=== PATIENT | female | born 1945 | race Caucasian/White ===

== ENCOUNTER 2018-06-21 11:25 | Day surgery (SDC) | payer OTHER ==
[2018-06-07 13:40] VITALS: BMI 23.2
--- NOTE | 2018-06-21 14:44 | OP ---
DATE OF PROCEDURE: 06/21/2018 [employer] SURGEON: None. PROCEDURES PERFORMED: 1. Esophagogastroduodenoscopy, diagnostic. 2. Colonoscopy with snare polypectomy. INDICATIONS: 1. Nausea. 2. Weight loss. 3. Average risk colon cancer screening exam, this is the patient's first colonoscopy. MEDICATIONS: See Anesthesia record. FINDINGS: After discussion of the risks, benefits, and alternatives of the procedure, informed consent was obtained and witnessed. Pre-endoscopic cardiopulmonary examination was satisfactory. Time-out was performed before sedation was achieved. Sedation was achieved with Anesthesia assistance in the endoscopy unit. A Pentax adult upper endoscope was placed into the oropharynx and passed through the cricopharyngeus under direct visualization. The esophageal mucosa appeared normal throughout with a normal-appearing Z-line. The endoscope was advanced into the stomach. Forward and retroflexed views of the entire gastric mucosa were obtained. The gastric mucosa appears normal. The endoscope was advanced through the pylorus and into the first and second portions of the duodenum, which also appeared normal. The upper endoscope was completely withdrawn, and the patient was repositioned. Digital rectal exam was performed, which was unremarkable. The Pentax adult colonoscope was inserted into the anus and passed forward to the cecum in the usual fashion. The cecal base was identified by the appendiceal orifice as well as the ileocecal valve. The terminal ileum was intubated and the ileal mucosa appeared normal. The colonoscope was then slowly withdrawn in a gradual and circumferential manner with careful examination of the entire colonic mucosa. The quality of the prep was good. In the descending colon, there were 2 sessile polyps measuring 7 to 8 mm in diameter. These were completely removed with hot snare and retrieved for pathology. In the sigmoid colon, there were 2 polyps measuring 8 to 10 mm in diameter, one of these was sessile and the other was pedunculated. Both these polyps were completely removed with hot snare and retrieved for pathology. Retroflexion in the rectum demonstrated internal hemorrhoids. The colonoscope was then completely withdrawn, and the patient allowed to recover. The patient tolerated the procedure well. There were no immediate postprocedure complications. IMPRESSION: 1. Normal esophagogastroduodenoscopy. 2. Two descending colon polyps measuring 7 to 8 mm, completely removed with hot snare and retrieved for pathology. 3. Two sigmoid colon polyps measuring 8 to 10 mm in diameter, completely removed with hot snare and retrieved for pathology. 4. Internal hemorrhoids. RECOMMENDATIONS: 1. Follow up pathology on the colon polyps. 2. Repeat colonoscopy for surveillance in 3 years. 3. Follow up in GI clinic in about 1 month. Job ID: [id number]
[2018-06-21] MEDS ORDERED: PROPOFOL 200 MG/20 ML VIAL ONE (17:15)
[2018-06-21] MEDS ORDERED: Lidocaine 1% PF 5 ML VIAL ONE (17:15)
== END 2018-06-21 15:27 ==
LOC: SDC 11:25
PROVIDERS: ATTEND Internal Medicine
PROC: 0DBN8ZX Excision of Sigmoid Colon, Via Natural or Artificial Opening Endoscopic, Diagnostic (ICD-10-PCS; principal; 2018-06-21)
PROC: 0DBM8ZX Excision of Descending Colon, Via Natural or Artificial Opening Endoscopic, Diagnostic (ICD-10-PCS; principal; 2018-06-21)
PROC: 0DJ08ZZ Inspection of Upper Intestinal Tract, Via Natural or Artificial Opening Endoscopic (ICD-10-PCS; principal; 2018-06-21)
DX: Z12.11 Encounter for screening for malignant neoplasm of colon (principal); D12.4 Benign neoplasm of descending colon; D12.5 Benign neoplasm of sigmoid colon; K64.8 Other hemorrhoids; R11.0 Nausea; R63.4 Abnormal weight loss; Z68.23 Body mass index [BMI] 23.0-23.9, adult; Z79.811 Long term (current) use of aromatase inhibitors; Z79.899 Other long term (current) drug therapy
CPT/HCPCS: 88305; J2001; J2704

== ENCOUNTER 2019-10-20 14:58 | Observation (INO) | payer OTHER ==
[~2019-10-20 14:58] MED LIST: Iopamidol 370 76% 100 ML VIAL ONE
--- NOTE | 2019-10-20 15:47 | CT ---
CT BRAIN WITHOUT CONTRAST: HISTORY:Lethargy, weakness, altered mental status COMPARISON:10/11/2019 FINDINGS: There are foci of decreased attenuation in the periventricular white matter, consistent with chronic small vessel ischemic disease. Changes of cortical atrophy are again seen. No evidence of acute infarct, hemorrhage, midline shift or abnormal extra-axial fluid collections is seen. The ventricular size is stable and the basilar cisterns are patent. The bony calvarium is intact. The visualized paranasal sinuses and mastoid air cells are well aerated. IMPRESSION: No CT evidence of acute intracranial process.
--- NOTE | 2019-10-20 16:33 | RAD ---
Chest one view HISTORY: Lethargy. Dyspnea. COMPARISON: 10/11/2019. FINDINGS: Cardiac silhouette is magnified by projection. Pulmonary vasculature is unremarkable. Mediastinum is midline with aortic calcification. No lobar consolidation or evidence of pneumothorax. Metallic clips overlie the right axilla. phototypesetting equipment monitor leads overlie the chest. IMPRESSION : Atherosclerosis. No active cardiopulmonary abnormalities are otherwise demonstrated
[2019-10-20 16:43] LABS: #Basophils 0.1 thou/uL (0.0-0.2); #Eosinphils 0.2 thou/uL (0.0-0.7); #Monocytes 0.7 thou/uL (0.11-0.59); #Neutrophils 5.6 thou/uL (1.40-6.50); %Basophils 0.7 % (0.0-1.0); %Eosinophils 2.4 % (0.0-10.0); %Lymphocytes 31.3 % (21.0-51.0); %Neutrophils 58.6 % (42.0-75.0); Hemoglobin 10.3 g/dL (12.0-16.0); Mean Corpuscular HGB CONC 33.5 g/dL (32.0-36.0); Mean Corpuscular Hemoglobin 32.2 pg (27.0-31.0); Platelet Count 309 thou/uL (130-400); RBC Distribution Width 11.7 % (11.5-14.5); White Blood Cell (WBC) Count 9.6 thou/uL (4.8-10.8)
[2019-10-20 17:05] LABS: ALT (SGPT) 21 U/L (8-55); AST (SGOT) 26 U/L (5-34); Albumin 2.5 g/dL (3.4-4.8); Alkaline Phosphatase 84 U/L (40-110); Anion Gap 12 mmol/L (10-20); BUN (Urea Nitrogen) 19 mg/dL (9.8-20.1); Bilirubin, Total 0.5 mg/dL (0.2-1.2); Calc. Creatinine Clearance 0 mL/min (70-130); Calcium 9.1 mg/dL (7.8-10.44); Carbon Dioxide 24 mmol/L (23-31); Chloride 104 mmol/L (98-107); Estimated GFR-MDRD 51; Glucose 79 mg/dL (83-110); Potassium 4.4 mmol/L (3.5-5.1); Protein, Total 6.5 g/dL (6.0-8.3); Sodium 136 mmol/L (136-145)
[2019-10-20 17:25] LABS: Bacteria/HPF None Seen HPF (None Seen); Bilirubin Negative (Negative); Blood, Urine Trace (Negative); Clarity Clear (Clear); Glucose, Urine (Dipstick) Normal (Negative); Ketone, Urine Negative (Negative); Leukocyte Negative Leu/uL (Negative); Nitrite Negative (Negative); Protein, Urine (Dipstick) 20 mg/dL (Neg-Trace); Specific Gravity, Urine 1.012 (1.002-1.036); Squamous Epithelial 0-3 HPF (0-3); Urobilinogen Normal mg/dL (Less than 2); WBC/HPF 0-3 HPF (0-3); pH, Urine 7.5 (5.0-9.0)
--- NOTE | 2019-10-20 18:58 | CT ---
CT OF THE ABDOMEN AND PELVIS WITH IV CONTRAST INDICATION: History of weakness and abdominal pain COMPARISON: CT the abdomen and pelvis dated June 09, 2007 FINDINGS: ABDOMEN: Lung bases: There is bibasilar atelectasis Liver: No focal lesion. Gallbladder: Mildly distended Pancreas: Normal. Adrenal glands: Normal. Spleen: Normal. Kidneys and ureters: There is bilateral renal cysts. The largest within the inferior pole left kidney measuring 4.4 cm. The largest within the right kidney measures 2.3 cm within the right mid kidney. Vasculature: There are moderate vascular calcifications seen involving the visualized vasculature. Lymph nodes:No lymphadenopathy. Free fluid in abdomen:No free fluid is evident. PELVIS: Small and large bowel: There is a moderate amount retained stool within colon. Small bowel is of norm al caliber. Appendix:Normal Bladder: Normal. Rectal and perirectal soft tissues:Normal. Reproductive structures: Normal. Free fluid in pelvis: No free fluid is evident. Lymphadenopathy pelvis: No lymphadenopathy is evident. Osseous structures: No acute osseous abnormality. No destructive osteolytic or osteoblastic lesion i s identified. There is scattered degenerative and osteoarthritic changes. Soft tissues:Mild anasarca IMPRESSION: 1. Nonspecific mild distention of the gallbladder. 2. Bilateral renal cysts. 3. Moderate amount of retained stool within the colon. 4. Mild anasarca
[2019-10-20] MEDS ORDERED: hydrALAZINE 20 MG/ML VIAL SLOW IVP PRN (21:18)
[2019-10-20] MEDS: Dextrose 5 % And 0.9 % NaCl 1,000 ML IV SCH (22:30)
--- NOTE | 2019-10-21 02:15 | HP ---
REASON FOR ADMISSION: Worsening confusion. HISTORY OF PRESENT ILLNESS: This is a 74-year-old female patient, who is a longterm resident and is known to have history of dementia. She was recently at [facility] for confusion, is thought to be secondary to acute metabolic encephalopathy and acute on chronic renal insufficiency. She was hospitalized for approximately 5 days. She improved and then she was discharged to the longterm. Her daughter noticed that the patient has not been eating and not very responsive. She does not know the color of the blanket for example and there was a concern for aspiration, so she asked her mom to be sent to the ER. The patient is currently on Med/Surg, appears to be comfortable. She does follow commands, but she appears to be disoriented. PAST MEDICAL HISTORY: 1. Hypothyroidism. 2. High blood pressure. 3. Anxiety. 4. Depression. 5. Schizophrenia. 6. Status post mastectomy. 7. Chronic kidney disease. 8. Dementia. ALLERGIES: NO NOTE OF ANY DRUG ALLERGIES. PAST SURGICAL HISTORY: Right mastectomy and bilateral tubal ligation. SOCIAL HISTORY: She does not smoke. Does not drink alcohol. REVIEW OF SYSTEMS: Unable to obtain due to her dementia. PHYSICAL EXAMINATION: GENERAL: She is awake, but confused. VITAL SIGNS: Her blood pressure is 153/76, heart rate of 101, and saturating 100% on room air. HEENT: Head is nontraumatic and normocephalic. Pupils appear equally reactive. Extraocular movements are intact. Nonicteric sclerae. Well injected conjunctivae. Oral mucosa normal. Nasal mucosa normal. NECK: Supple. No adenopathy. No murmur. Thyroid is not palpable. Trachea is midline. No supraclavicular adenopathy. HEART: S1 and S2, regular. No murmur. No gallops. No friction rubs. No displacement of PMI. LUNGS: Poor inspiratory effort. ABDOMEN: Bowel sounds are positive. Nontender abdomen. No hepatosplenomegaly. EXTREMITIES: 1+ pitting edema in bilateral lower extremities. NEURO: Unable to fully assess. Cranial nerves appeared to be intact. She is moving all four extremities. LABORATORY DATA: Blood work shows WBC of 9.6, hemoglobin of 10.3, and platelets of 309. D-dimer 2.08. Sodium 136, potassium of 4.4, BUN 19, and creatinine 1.05. BNP 135. Urinalysis does not show any evidence of infection. IMAGING DATA: CT of the head shows no acute process. CT of the abdomen shows nonspecific mild distention of the gallbladder, bilateral renal cyst, moderate amount of retained stool within the colon, mild anasarca. Chest x-ray shows no active cardiopulmonary disease. ASSESSMENT AND PLAN: This is a 74-year-old female patient, who is presenting with worsening of her confusion, possible aspiration, decreased oral intake. Neuro: The patient has dementia. Her confusion is most likely metabolic in nature and multifactorial. We will ask Neurology to assess her for further input. GI: The patient has poor oral intake. We will ask our Speech and Swallow to evaluate her and we will look into the process of PEG tube placement since daughter is interested in that option. For DVT prophylaxis, she will be on Lovenox subcu. I did discuss the code status with her daughter. She wishes her to be a DNR. The patient will be on gentle IV fluid hydration. Job ID: [id number]
[2019-10-21 05:39] LABS: #Eosinphils 0.4 thou/uL (0.0-0.7); #Lymphocytes 2.4 thou/uL (1.20-3.40); #Monocytes 0.5 thou/uL (0.11-0.59); #Neutrophils 4.7 thou/uL (1.40-6.50); %Basophils 0.5 % (0.0-1.0); %Eosinophils 4.6 % (0.0-10.0); %Lymphocytes 30.1 % (21.0-51.0); %Monocytes 6.6 % (0.0-10.0); %Neutrophils 58.3 % (42.0-75.0); Hemoglobin 8.8 g/dL (12.0-16.0); Mean Corpuscular HGB CONC 31.4 g/dL (32.0-36.0); Mean Corpuscular Hemoglobin 30.8 pg (27.0-31.0); Mean Platelet Volume 7.9 fL (7.4-10.4); Platelet Count 276 thou/uL (130-400); RBC Distribution Width 11.8 % (11.5-14.5); Red Blood Cell (RBC) Count 2.86 mill/uL (4.20-5.40); White Blood Cell (WBC) Count 8.1 thou/uL (4.8-10.8)
[2019-10-21 06:00] LABS: Anion Gap 10 mmol/L (10-20); BUN (Urea Nitrogen) 15 mg/dL (9.8-20.1); Calc. Creatinine Clearance 63 mL/min (70-130); Calcium 8.3 mg/dL (7.8-10.44); Carbon Dioxide 22 mmol/L (23-31); Chloride 106 mmol/L (98-107); Estimated GFR-MDRD 61; Glucose 94 mg/dL (83-110); Potassium 4.3 mmol/L (3.5-5.1); Sodium 134 mmol/L (136-145)
[2019-10-21] MEDS ORDERED: Polyethylene Glycol 3350 17 GM Packet PO PRN (07:11)
[2019-10-21] MEDS ORDERED: Acetaminophen/Codeine 30-300mg Tablet PO PRN ×2 (07:11→07:18)
[2019-10-21] MEDS ORDERED: Meclizine HCl 25 MG TAB PO PRN (07:11)
[2019-10-21] MEDS ORDERED: Valproate Sodium 250 mg/5 ml UD Cup PO SCH (09:00)
[2019-10-21] MEDS ORDERED: Non-Formulary Item 1 EACH (Esomeprazole Magnesium [Nexium 24hr] 20 MG) PO SCH (09:00)
[2019-10-21] MEDS ORDERED: Enoxaparin Sodium 40 MG/0.4 ML SYRINGE SC SCH (09:00)
[2019-10-21] MEDS: Anastrozole 1 MG TAB PO SCH (10:47)
[2019-10-21] MEDS: Levothyroxine Sodium 25 MCG TAB PO SCH (10:48)
[2019-10-21] MEDS: Lactinex Tablet PO SCH ×2 (10:48→20:49)
[2019-10-21] MEDS: Ferrous Sulfate 325 MG TAB PO SCH ×2 (10:48→20:50)
[2019-10-21] MEDS: Docusate 100 MG CAP PO SCH ×2 (10:48→20:49)
[2019-10-21] MEDS: Valproate Sodium 250 mg/5 ml UD Cup PO SCH ×2 (10:49→20:50)
[2019-10-21] MEDS: Sucralfate 1 GM TAB PO SCH ×2 (10:49→20:49)
--- NOTE | 2019-10-21 12:05 | CON ---
NEUROLOGY CONSULTATION DATE OF CONSULTATION: 10/21/2019 REASON FOR CONSULTATION: Altered mental status. HISTORY OF PRESENT ILLNESS: Ms. Paz is a 74-year-old female, who is a shelter resident with dementia, hypothyroidism, hypertension, depression, schizophrenia, chronic kidney disease, and presented to the [facility] with altered mental status. Initially it was thought to be due to acute metabolic encephalopathy and she was hospitalized for 5 days and was discharged to the shelter. Per daughter, she became more unresponsive and not eating and there was a concern of aspiration, so she was brought back to the emergency room for further evaluation. Neurology was consulted for further input. REVIEW OF SYSTEMS: Unobtainable due to patient's mental status. ALLERGIES: NO KNOWN DRUG ALLERGIES. PAST MEDICAL HISTORY: Hypertension, hypothyroidism, dementia, anxiety, depression, chronic kidney disease. PAST SURGICAL HISTORY: Status post mastectomy. SOCIAL HISTORY: The patient is a shelter resident. No history of smoking, alcohol, illegal drug use. FAMILY HISTORY: No significant family history. PHYSICAL EXAMINATION: VITAL SIGNS: Blood pressure 150/70, pulse 80, respiratory rate 18. GENERAL: The patient is awake, but extremely confused. She keeps on repeating "please help me." HEENT: Normocephalic and atraumatic. CVS: Regular rate and rhythm. CHEST: Clear. ABDOMEN: Soft. NEUROLOGIC: Mental status: The patient is alert, awake, but not oriented to person, place, and time. She is extremely confused and does not follow commands appropriately. She does not track. Cranial nerves: Pupils round and reactive to light. Face symmetric. Tongue midline. Moves neck in both direction. Hearing seems to be intact. Masked faces. Motor: Muscle tone is increased. She has cogwheel rigidity in bilateral upper and lower extremity. Bilateral upper extremities tremor, right greater than left. Reflexes symmetric bilaterally. Cerebellar: Unable to perform secondary to mental status. Gait deferred due to the patient's safety reasons. DATA REVIEWED: I reviewed the CT scan of the head, which did not reveal any acute intracranial pathology. Chest x-ray is also unremarkable. ASSESSMENT AND PLAN: Ms. Angelica Paz is a 74-year-old with a history of baseline dementia, confusion, chronic kidney disease, consulted by Neurology for altered mental status and hallucinations. EEG reviewed and was negative for seizure activity. Consider MRI of the brain to rule out acute intracranial process. Altered mental status seems to be multifactorial secondary to chronic kidney disease versus parkinsonism like features. We will get MRI of the brain first before and then outpatient followup by Neurology to evaluate her further for Parkinson disease and a trial of Sinemet. Will hold Sinemet trail at this time because of hallucinations. Continue medical management per primary team, PT/OT/Speech. Continue home medications. DVT prophylaxis. We will continue to follow. Thank you for the consult. Plan discussed with the primary team in detail. Job ID: [id number] MILLIE
[2019-10-21 13:13] VITALS: BMI 25.8
--- NOTE | 2019-10-21 13:14 | PDOC.HOSPP ---
- Subjective Encounter Date: 10/21/19 Encounter Time: 13:05 Subjective: f/u for AMS/encephalopathy of unclear source. Recent UTI with admit tx with abx. Hx of dementia/Schizophrenia/Depression. - Objective Vital Signs & Weight: Vital Signs (12 hours) Temp Pulse Resp BP Pulse Ox 10/21/19 11:52 98.2 F 83 20 126/75 100 10/21/19 08:13 98.4 F 87 20 118/69 99 10/21/19 08:11 98.0 F 81 18 182/75 H 95 10/21/19 04:25 97.4 F L 82 18 128/78 96 Weight Weight 160 lb I&O: 10/20/19 10/21/19 10/22/19 06:59 06:59 06:59 Intake Total 675 Balance 675 Result Diagrams: 10/21/19 05:13 10/21/19 05:13 Additional Labs: Microbiology 10/20/19 16:57 Urine Straight Catheter Urine Culture - Preliminary NO GROWTH AT 24 HOURS 10/20/19 16:47 Venous blood - Right Hand Blood Culture - Preliminary Specimen has been received and culture in progress. No Growth to date. 10/20/19 16:20 Venous blood - Left Arm Blood Culture - Preliminary Specimen has been received and culture in progress. No Growth to date. Laboratory Tests 10/20/19 10/20/19 10/20/19 16:20 16:20 16:20 Hgb 10.3 L MCV 96.0 Sodium 136 B-Natriuretic Peptide 135.7 H Radiology Reviewed by me: Yes (EEG - non-specific cerebral dysfxn) Hospitalist ROS - Medication Medications: Active Medications Generic Name Dose Route Start Last Admin Trade Name Freq PRN Reason Stop Dose Admin Acidophilus 1 tab 10/21/19 09:00 10/21/19 10:48 Floranex PO Not Given BID [facility] Anastrozole 1 mg 10/21/19 09:00 10/21/19 10:47 Arimidex PO Not Given DAILY [facility] Docusate Sodium 100 mg 10/21/19 09:00 10/21/19 10:48 Colace PO Not Given BID [facility] Ferrous Sulfate 325 mg 10/21/19 09:00 10/21/19 10:48 Feosol PO Not Given BID [facility] Dextrose/Sodium Chloride 1,000 mls @ 75 mls/hr 10/20/19 21:30 10/20/19 22:30 D5 0.9% Ns IV 1,000 mls .[id number] JOSE ROBERTO Administration Levothyroxine Sodium 25 mcg 10/21/19 09:00 10/21/19 10:48 Synthroid PO Not Given DAILY JOSE ROBERTO Pantoprazole Sodium 40 mg 10/21/19 09:00 10/21/19 10:49 Protonix PO Not Given DAILY JOSE ROBERTO Sodium Chloride 10 ml 10/21/19 09:00 10/21/19 10:49 Flush - Normal Saline IVF Not Given Q12HR JOSE ROBERTO Sucralfate 1 gm 10/21/19 09:00 10/21/19 10:49 Carafate PO Not Given BID JOSE ROBERTO Valproic Acid 500 mg 10/21/19 09:00 10/21/19 10:49 Depakene Liquid PO Not Given BID JOSE ROBERTO - Exam General Appearance: NAD, awake alert Eye: PERRL, anicteric sclera ENT - other findings: edentulous Neck: supple, symmetric, no JVD, no thyromegaly, no lymphadenopathy Heart: RRR, no gallops, no rubs, normal peripheral pulses Heart - other findings: S1, S2 Respiratory: CTAB, no wheezes, no rales, no ronchi, normal chest expansion Gastrointestinal: soft, non-tender, non-distended, normal bowel sounds, no palpable masses Extremities: no cyanosis, no clubbing, no edema Skin: normal turgor, no lesions Neurological: cranial nerve grossly intact, no new deficit Neurological - other findings: not observed ambulatory, cog-wheel rigidity, resting pill tremors Musculoskeletal: generalized weakness Psychiatric: oriented to person, flat affect Hosp A/P (1) Acute metabolic encephalopathy Code(s): G93.41 - METABOLIC ENCEPHALOPATHY Status: Acute Plan: ? encephalopathy or worsening of baseline dementia, no seizure activity per EEG , supportive mgmt (2) Parkinson disease Code(s): G20 - PARKINSON'S DISEASE Status: Chronic Plan: Appears untreated, start Sinemet 25/100mg po TID, PT evaluation for functional assessment (3) Acute on chronic kidney failure Code(s): N17.9 - ACUTE KIDNEY FAILURE, UNSPECIFIED; N18.9 - CHRONIC KIDNEY DISEASE, UNSPECIFIED Status: Acute Qualifiers: Chronic kidney disease stage: stage 3 (moderate) Plan: Improved with IVF's, avoid nephrotoxic meds and limit contrast exposure (4) Schizo affective schizophrenia Code(s): F25.9 - SCHIZOAFFECTIVE DISORDER, UNSPECIFIED Status: Chronic (5) Dementia Code(s): F03.90 - UNSPECIFIED DEMENTIA WITHOUT BEHAVIORAL DISTURBANCE Status: Chronic Plan: Likely Alzheimer's type, supportive mgmt (6) Normocytic anemia Code(s): D64.9 - ANEMIA, UNSPECIFIED Status: Acute Plan: ? etiology, check stool guaiac, Iron/Ferritin/Retic count, serial H/H - Plan PT/OT, social worker palliative care, speech therapy, out of bed/ambulate, DVT proph w/SCDs Stable overall Continue supportive mgmt Start Sinemet 25/100mg po TID Continue low-volume IVF's OOB with PT AM lab: BMP, H/H, Ferritin/Iron/Retic count
[2019-10-21] MEDS: Dextrose 5 % And 0.9 % NaCl 1,000 ML IV SCH (13:38)
--- NOTE | 2019-10-21 13:42 | EEG ---
DATE OF SERVICE: 10/21/2019 ATTENDING PHYSICIAN: Eileen Dominguez MD This EEG was performed using 24-channel [employer] video digital EEG machine with 24 disk electrodes. This was an extended 2 hours 5 minutes of inpatient video EEG recording. Digital analysis of the EEG was done for spike and seizure detection, which revealed no abnormalities. BACKGROUND: The posterior background rhythm was not observed. HYPERVENTILATION: Not performed. PHOTIC STIMULATION: No response seen with photic stimulation. SLEEP: No stage changes observed. EEG DIAGNOSES: 1. Generalized irregular theta-delta activity seen throughout the recording. 2. Absence of posterior background rhythm. CLINICAL INTERPRETATION: This EEG is consistent with moderate generalized nonspecific cerebral dysfunction. No ictal or interictal epileptiform abnormalities seen during the recording. Job ID: [id number]
[2019-10-21] MEDS: Carbidopa/Levodopa 25-100 mg Tablet PO SCH (20:49)
[2019-10-21] MEDS ORDERED: Prevnar 13-Val Conj/PF 0.5 ML SYRINGE IM ONE (21:00)
[2019-10-21] MEDS ORDERED: Benzonatate 100 MG CAP PO PRN (22:05)
[2019-10-22] MEDS: Dextrose 5 % And 0.9 % NaCl 1,000 ML IV SCH ×2 (01:21→15:17)
[2019-10-22 07:20] LABS: Reticulocyte Count 3.6 % (0.5-1.5)
[2019-10-22 07:21] LABS: Hemoglobin 9.4 g/dL (12.0-16.0); Platelet Count 273 thou/uL (130-400)
--- NOTE | 2019-10-22 09:10 | RAD ---
CHEST 1 VIEW: Date: 10/22/2019 HISTORY: Choking episode, concern for aspiration. FINDINGS: Moderate rotation to the left. Surgical clips overlying the right chest wall. No direct or indirect e vidence of malignancy. IMPRESSION: Stable chest. No evidence for pneumonia or aspiration. Unchanged from prior study. POS: RRE
[2019-10-22] MEDS: Lactinex Tablet PO SCH ×2 (09:20→20:50)
[2019-10-22] MEDS: Levothyroxine Sodium 25 MCG TAB PO SCH (09:20)
[2019-10-22] MEDS: Sucralfate 1 GM TAB PO SCH ×2 (09:21→20:50)
[2019-10-22] MEDS: Docusate 100 MG CAP PO SCH ×2 (09:21→20:50)
[2019-10-22] MEDS: Valproate Sodium 250 mg/5 ml UD Cup PO SCH ×2 (09:21→20:49)
[2019-10-22] MEDS: Ferrous Sulfate 325 MG TAB PO SCH (09:21)
--- NOTE | 2019-10-22 13:33 | PDOC.HOSPP ---
- Subjective Encounter Date: 10/22/19 Encounter Time: 12:15 Subjective: ortiz cute events noted o/n. she is sitting in the bed, on the screaming side, not answering any qs except screaming. - Objective Vital Signs & Weight: Vital Signs (12 hours) Temp Pulse Resp BP Pulse Ox 10/22/19 11:54 98.0 F 75 20 105/53 L 99 10/22/19 08:00 98.6 F 73 20 138/83 100 10/22/19 04:00 97.8 F 73 18 146/76 H 93 L Weight Admit Weight 160 lb Weight 160 lb I&O: 10/21/19 10/22/19 10/23/19 06:59 06:59 06:59 Intake Total 675 690 Output Total 800 Balance 675 -110 Result Diagrams: 10/22/19 06:44 10/21/19 05:13 Hospitalist ROS - Medication Medications: Active Medications Generic Name Dose Route Start Last Admin Trade Name Freq PRN Reason Stop Dose Admin Acidophilus 1 tab 10/21/19 09:00 10/22/19 09:20 Floranex PO 1 tab BID JOSE ROBERTO Administration Anastrozole 1 mg 10/21/19 09:00 10/21/19 10:47 Arimidex PO Not Given DAILY JOSE ROBERTO Carbidopa/Levodopa 1 tab 10/21/19 21:00 10/21/19 20:49 Sinemet 25-100 PO 1 tab TID JOSE ROBERTO Administration Docusate Sodium 100 mg 10/21/19 09:00 10/22/19 09:21 Colace PO 100 mg BID JOSE ROBERTO Administration Ferrous Sulfate 325 mg 10/21/19 09:00 10/22/19 09:21 Feosol PO 325 mg BID JOSE ROBERTO Administration Dextrose/Sodium Chloride 1,000 mls @ 75 mls/hr 10/20/19 21:30 10/22/19 01:21 D5 0.9% Ns IV Not Given .[id number] JOSE ROBERTO Levothyroxine Sodium 25 mcg 10/21/19 09:00 10/22/19 09:20 Synthroid PO 25 mcg DAILY JOSE ROBERTO Administration Pantoprazole Sodium 40 mg 10/21/19 09:00 10/22/19 09:20 Protonix PO 40 mg DAILY JOSE ROBERTO Administration Sodium Chloride 10 ml 10/21/19 09:00 10/22/19 09:21 Flush - Normal Saline IVF 10 ml Q12HR JOSE ROBERTO Administration Sucralfate 1 gm 10/21/19 09:00 10/22/19 09:21 Carafate PO 1 gm BID JOSE ROBERTO Administration Valproic Acid 500 mg 10/21/19 09:00 10/22/19 09:21 Depakene Liquid PO 500 mg BID JOSE ROBERTO Administration - Exam General Appearance: ill appearing Eye: PERRL ENT: normocephalic atraumatic Neck: supple Heart: RRR Respiratory: CTAB, normal chest expansion Gastrointestinal: soft Neurological: no focal deficits Psychiatric: not oriented Hosp A/P - Plan (1) Acute metabolic encephalopathy Code(s): G93.41 - METABOLIC ENCEPHALOPATHY Status: Acute Plan: ? encephalopathy or worsening of baseline dementia, no seizure activity per EEG , supportive mgmt (2) Parkinson disease Code(s): G20 - PARKINSON'S DISEASE Status: Chronic Plan: Appears untreated, start Sinemet 25/100mg po TID, PT evaluation for functional assessment Started Sinemet 25/100mg po TID -MRI is not ordered for the last 2 days -it does not appear pt would be stable to get that done. - will order and ativan prn, will make an attempt this weekend. -get tsh, vit D, b12 and folate -neuro nte reviewed -EEG - no abnormality (3) Acute on chronic kidney failure Code(s): N17.9 - ACUTE KIDNEY FAILURE, UNSPECIFIED; N18.9 - CHRONIC KIDNEY DISEASE, UNSPECIFIED Status: Acute Qualifiers: Chronic kidney disease stage: stage 3 (moderate) Plan: Improved with IVF's, avoid nephrotoxic meds and limit contrast exposure (4) Schizo affective schizophrenia Code(s): F25.9 - SCHIZOAFFECTIVE DISORDER, UNSPECIFIED Status: Chronic -restart zyprexa - home med (5) Dementia Code(s): F03.90 - UNSPECIFIED DEMENTIA WITHOUT BEHAVIORAL DISTURBANCE Status: Chronic Plan: Likely Alzheimer's type, supportive mgmt (6) Normocytic anemia Code(s): D64.9 - ANEMIA, UNSPECIFIED Status: Acute Plan: ? etiology, check stool guaiac, Iron/Ferritin/Retic count, serial H/H OOB with PT pt from [place] - will see how she does in the next few days - follow imaging study and labs.
[2019-10-22] MEDS: Carbidopa/Levodopa 25-100 mg Tablet PO SCH ×3 (13:59→20:50)
[2019-10-22] MEDS: Anastrozole 1 MG TAB PO SCH (13:59)
[2019-10-22] MEDS ORDERED: Lorazepam 2 MG/ML VIAL SLOW IVP PRN (14:18)
[2019-10-22] MEDS ORDERED: Magnevist 469MG/ML 20 ML VIAL ONE (15:04)
[2019-10-22 15:14] LABS: Thyroid Stimulating Hormone 2.3239 uIU/mL (0.35-4.94); Vitamin D, 25 Hydroxy 21.2 ng/ml (> 30.0)
--- NOTE | 2019-10-22 16:51 | MRI ---
MRI BRAIN WITH AND WITHOUT CONTRAST: DATE: 10/22/19 HISTORY: 74-year-old female with central nervous system abnormality, concern for Parkinson's. COMPARISON: No prior brain MRIs. TECHNIQUE: Multiple sequences obtained in axial, sagittal, and coronal planes; pre and post IV injection of gado linium-based contrast agent: Multihance. FINDINGS: All images are degraded by patient motion, some worse than others. The FLAIR axial images and T2 weig hted images are especially degraded by motion, even the repeated FLAIR sequence. The lateral, third, and fourth ventricles are diffusely moderately dilated. There is diffuse cortical atrophy of the bilateral cerebral hemispheres, and atrophy of the brainstem There is no restricted diffusion to indicate an acute infarction. There is confluent hyperintense sig nal abnormality throughout the periventricular white matter, extending to the bah radiata and cent rum semiovale bilaterally. At least some of this represents high grade chronic ischemic white matter changes due to microvascular atherosclerosis. Superimposed transependymal migration of CSF is not exc luded. There is no dural venous sinus thrombosis. No mass effect, midline shift, or extra-axial fluid collec tions. No abnormal intra-axial enhancement or mass. No extra-axial fluid collection. The degree of ve ntriculomegaly has not changed compared to brain CT of 10/20/19 and 10/11/19. Please note that MRI canno t diagnose Parkinson's disease. IMPRESSION: 1. Diffuse brain atrophy and moderately severe chronic ischemic white matter changes. 2. Ventriculomegaly. This is probably due to the brain atrophy. There is a smaller possibility t hat there could be a superimposed normal pressure hydrocephalus. Recommend clinical correlation (is t here urinary incontinence, and/or gait apraxia, in addition to the altered mental status?). VELVET Randhawa POS: ANSON
[2019-10-23] MEDS: Docusate 100 MG CAP PO SCH ×2 (08:15→21:25)
[2019-10-23] MEDS: Levothyroxine Sodium 25 MCG TAB PO SCH (08:15)
[2019-10-23] MEDS: Valproate Sodium 250 mg/5 ml UD Cup PO SCH ×2 (08:15→21:25)
[2019-10-23] MEDS: Anastrozole 1 MG TAB PO SCH (08:15)
[2019-10-23] MEDS: Lactinex Tablet PO SCH ×2 (08:15→21:25)
[2019-10-23] MEDS: Sucralfate 1 GM TAB PO SCH ×2 (08:15→21:25)
[2019-10-23] MEDS: OLANZapine 5 MG TAB PO SCH (08:15)
[2019-10-23] MEDS: Carbidopa/Levodopa 25-100 mg Tablet PO SCH ×3 (08:25→21:25)
--- NOTE | 2019-10-23 14:54 | PDOC.HOSPP ---
- Subjective Encounter Date: 10/23/19 Encounter Time: 11:50 Subjective: pt is calmer today. sleeping, no acute events o/n. - Objective Vital Signs & Weight: Vital Signs (12 hours) Temp Pulse Resp BP BP Pulse Ox 10/23/19 12:00 98.7 F 90 16 183/80 H 100 10/23/19 08:02 146/71 H 10/23/19 07:31 98.9 F 86 15 89/60 L 100 10/23/19 03:45 98.2 F 84 18 130/87 100 Weight Admit Weight 160 lb Weight 160 lb I&O: 10/22/19 10/23/19 10/24/19 06:59 06:59 06:59 Intake Total 690 Output Total 1100 Balance -410 Result Diagrams: 10/22/19 06:44 10/21/19 05:13 Hospitalist ROS - Medication Medications: Active Medications Generic Name Dose Route Start Last Admin Trade Name Freq PRN Reason Stop Dose Admin Acidophilus 1 tab 10/21/19 09:00 10/23/19 08:15 Floranex PO 1 tab BID JOSE ROBERTO Administration Anastrozole 1 mg 10/21/19 09:00 10/23/19 08:15 Arimidex PO 1 mg DAILY JOSE ROBERTO Administration Carbidopa/Levodopa 1 tab 10/21/19 21:00 10/23/19 08:25 Sinemet 25-100 PO 1 tab TID JOSE ROBERTO Administration Docusate Sodium 100 mg 10/21/19 09:00 10/23/19 08:15 Colace PO 100 mg BID JOSE ROBERTO Administration Ferrous Sulfate 300 mg 10/22/19 21:00 10/23/19 08:15 Ferrous Sulfate PO 300 mg BID JOSE ROBERTO Administration Levothyroxine Sodium 25 mcg 10/21/19 09:00 10/23/19 08:15 Synthroid PO 25 mcg DAILY JOSE ROBERTO Administration Olanzapine 5 mg 10/23/19 09:00 10/23/19 08:15 Zyprexa PO 5 mg DAILY JOSE ROBERTO Administration Pantoprazole Sodium 40 mg 10/21/19 09:00 10/23/19 08:15 Protonix PO 40 mg DAILY JOSE ROBERTO Administration Sodium Chloride 10 ml 10/21/19 09:00 10/23/19 09:02 Flush - Normal Saline IVF 10 ml Q12HR JOSE ROBERTO Administration Sucralfate 1 gm 10/21/19 09:00 10/23/19 08:15 Carafate PO 1 gm BID JOSE ROBERTO Administration Valproic Acid 500 mg 10/21/19 09:00 10/23/19 08:15 Depakene Liquid PO 500 mg BID JOSE ROBERTO Administration - Exam General - other findings: sleeping ENT: normocephalic atraumatic Neck: supple Heart: RRR Respiratory: CTAB, normal chest expansion Gastrointestinal: soft, normal bowel sounds Neurological: no focal deficits Hosp A/P - Plan (1) Acute metabolic encephalopathy Code(s): G93.41 - METABOLIC ENCEPHALOPATHY Status: Acute Plan: ? encephalopathy or worsening of baseline dementia, no seizure activity per EEG , supportive mgmt (2) Parkinson disease Code(s): G20 - PARKINSON'S DISEASE Status: Chronic Plan: Appears untreated, start Sinemet 25/100mg po TID, PT evaluation for functional assessment Started Sinemet 25/100mg po TID -MRI is not ordered for the last 2 days -it does not appear pt would be stable to get that done. - will order and ativan prn, will make an attempt this weekend. -get tsh, vit D, b12 and folate -neuro nte reviewed -EEG - no abnormality (3) Acute on chronic kidney failure Code(s): N17.9 - ACUTE KIDNEY FAILURE, UNSPECIFIED; N18.9 - CHRONIC KIDNEY DISEASE, UNSPECIFIED Status: Acute Qualifiers: Chronic kidney disease stage: stage 3 (moderate) Plan: Improved with IVF's, avoid nephrotoxic meds and limit contrast exposure (4) Schizo affective schizophrenia Code(s): F25.9 - SCHIZOAFFECTIVE DISORDER, UNSPECIFIED Status: Chronic -restart zyprexa - home med (5) Dementia Code(s): F03.90 - UNSPECIFIED DEMENTIA WITHOUT BEHAVIORAL DISTURBANCE Status: Chronic Plan: Likely Alzheimer's type, supportive mgmt (6) Normocytic anemia Code(s): D64.9 - ANEMIA, UNSPECIFIED Status: Acute Plan: ? etiology, check stool guaiac, Iron/Ferritin/Retic count, serial H/H OOB with PT - follow imaging study and labs. B12 high, foalte nl, tsh nl - Vit D deficiecny -started supplement. pt from [place] - will see how she does in the next few days -if stable, transfer to [facility] in 1 to 2 days.
[2019-10-24] MEDS: Valproate Sodium 250 mg/5 ml UD Cup PO SCH (08:51)
[2019-10-24] MEDS: Anastrozole 1 MG TAB PO SCH (08:51)
[2019-10-24] MEDS: OLANZapine 5 MG TAB PO SCH (08:51)
[2019-10-24] MEDS: Levothyroxine Sodium 25 MCG TAB PO SCH (08:52)
[2019-10-24] MEDS: Carbidopa/Levodopa 25-100 mg Tablet PO SCH ×2 (08:52→15:12)
[2019-10-24] MEDS: Lactinex Tablet PO SCH (08:52)
[2019-10-24] MEDS: Sucralfate 1 GM TAB PO SCH (08:53)
[2019-10-24] MEDS: Docusate 100 MG CAP PO SCH (08:53)
[2019-10-24] MEDS ORDERED: Cholecalciferol 1,000 UNITS (25 MCG) TAB PO SCH (09:00)
[2019-10-24] MEDS ORDERED: Amlodipine 5 MG TAB PO SCH (09:00)
[2019-10-24] MEDS ORDERED: Prevnar 13-Val Conj/PF 0.5 ML SYRINGE IM ONE (11:00)
--- NOTE | 2019-10-24 16:48 | PDOC.HOSPP ---
- Subjective Encounter Date: 10/24/19 Subjective: NEUROLOGY PROGRESS NOTE Patient awake but not following commands. More calm today. - Objective Vital Signs & Weight: Vital Signs (12 hours) Temp Pulse Resp BP Pulse Ox 10/24/19 11:34 99.3 F 95 20 138/77 100 10/24/19 09:38 97 10/24/19 08:06 98.8 F 100 18 174/80 H 97 Weight Admit Weight 160 lb Weight 160 lb I&O: 10/23/19 10/24/19 10/25/19 06:59 06:59 06:59 Intake Total 690 240 Output Total 1100 400 Balance -410 -160 Result Diagrams: 10/22/19 06:44 10/21/19 05:13 Radiology Reviewed by me: Yes EKG Reviewed by me: Yes Hospitalist ROS - Review of Systems ROS unobtainable: due to mental status - Exam General Appearance: awake alert Eye: PERRL ENT: normocephalic atraumatic Neck: supple Heart: RRR Respiratory: CTAB Gastrointestinal: soft Extremities: no cyanosis Skin: normal turgor Neurological: no focal deficits Neurological - other findings: masked facies, cogwheel rigidity Musculoskeletal: no muscle wasting, generalized weakness Psychiatric: not oriented Hosp A/P (1) AMS (altered mental status) Code(s): R41.82 - ALTERED MENTAL STATUS, UNSPECIFIED Status: Acute (2) Acute on chronic kidney failure Code(s): N17.9 - ACUTE KIDNEY FAILURE, UNSPECIFIED; N18.9 - CHRONIC KIDNEY DISEASE, UNSPECIFIED Status: Acute Qualifiers: Chronic kidney disease stage: stage 3 (moderate) (3) Dehydration Code(s): E86.0 - DEHYDRATION Status: Acute (4) Hypokalemia Code(s): E87.6 - HYPOKALEMIA Status: Acute (5) UTI (urinary tract infection) Status: Acute Qualifiers: Urinary tract infection type: acute cystitis - Plan plan discussed w/ family (plan discussed with daughter), PT/OT, speech therapy 74 year old consulted for altered mental status which seems multifactorial due to infectious and metabolic etiologies. She does have Parkinsonism features and concern for vascular dementia. MRI Brain reviewed and was negative for acute stroke or bleed. EEG reviewed and was negative for seizure activity. Results discussed in detail with the daughter. She needs ro be evaluated by outpatient neurologist for Parkinson to decide on treatment once acute issues are resolved. Continue home medications and medical management per primary team. Plan discussed in detail with the daughter, and the primary attending Dr. Hamm.
[2019-10-24 19:24] VITALS: BP 135/84; TEMP 97.8
--- NOTE | 2019-10-25 07:04 | DIS ---
DATE OF ADMISSION: 10/20/2019 DATE OF DISCHARGE: 10/24/2019 DISCHARGE DIAGNOSES: 1. Acute metabolic encephalopathy. 2. Schizoaffective and schizophrenia. 3. Pmeym-kh-lxsjrrw kidney failure stage 3. 4. Dementia. 5. Normocytic anemia. 6. Vitamin D deficiency. 7. Mild normal-pressure hydrocephalus per MRI finding. 8. Parkinson disease, ruled out per Neurology evaluation. PROCEDURE: Electroencephalogram showing generalized, irregular theta activity and consistent with moderate generalized nonspecific cerebral dysfunction. CONSULTATION: Neurology consult with Dr. Dominguez. PHYSICAL EXAMINATION: VITAL SIGNS: Temperature 99.3, pulse 95, blood pressure 138/77, and saturating 100% on room air. GENERAL: The patient appears comfortable today and I talked to the daughter at length over the phone. Also, I talked to Neurology. We will discontinue her Sinemet as clinically not indicated at this time. CARDIOVASCULAR: Regular rate and rhythm without murmurs, rubs, or gallops. LUNGS: Clear. ABDOMEN: Abdominal exam is quite benign. HOSPITAL COURSE: This is a 74-year-old female from [facility] with underlying history of dementia, has worsening of her mental status, brought in for further evaluation. Workup did not show any significant abnormality, mostly it is metabolic and multifactorial in nature. Neurology did evaluate her, and no definite etiology for confusion. MRI showed chronic microvascular ischemic changes, and there is diffuse brain atrophy and ventriculomegaly, smaller possibility there could be superimposed normal-pressure hydrocephalus. I have updated the patient's daughter. Patient has multiple comorbidities, but currently, she is clinically sound enough to go back to her [facility]. DISCHARGE INSTRUCTIONS: ACTIVITY: As tolerated. DIET: With supervision on a regular diet. FOLLOWUP: Follow up with PCP in 1 week. TIME SPENT: Discharge time took over 35 minutes. Job ID: [id number] [facility]
[2019-10-26 15:24] LABS: ANA Symphony (Qualitative) Negative (Negative); ANA Symphony (Quantitative) 0.4 Ratio (< 0.7 Negative); dsDNA IgG Antibody 1.5 IU/mL (<10 Negative)
== END 2019-10-24 16:19 ==
LOC: ERS 14:58 → T4-A 19:26
PROVIDERS: ADMIT Internal Medicine; ATTEND Internal Medicine
DX: G93.41 Metabolic encephalopathy (principal); F25.9 Schizoaffective disorder, unspecified; G20 Parkinson's disease; F02.80 Dementia in other diseases classified elsewhere, unspecified severity, without behavioral disturbance, psychotic disturbance, mood disturbance, and anxiety; I12.9 Hypertensive chronic kidney disease with stage 1 through stage 4 chronic kidney disease, or unspecified chronic kidney disease; N18.3 Chronic kidney disease, stage 3 (moderate); N17.9 Acute kidney failure, unspecified; E55.9 Vitamin D deficiency, unspecified; G91.2 (Idiopathic) normal pressure hydrocephalus; N28.1 Cyst of kidney, acquired; E03.9 Hypothyroidism, unspecified; E86.0 Dehydration; N39.0 Urinary tract infection, site not specified; Z79.899 Other long term (current) drug therapy
CPT/HCPCS: 36415; 51701; 70450; 70553; 71045; 74177; 80048; 80053; 81003; 81015; 82306; 82607; 82728; 82746; 83540; 83605; 83880; 84443; 84484; 85014; 85018; 85025; 85046; 85049; 86038; 86225; 87040; 87086; 93005; 94760; 95712; 95816; 95819; 95957; 96360; 96361; A9579; G0378; Q9967

== ENCOUNTER 2019-12-29 12:36 | Emergency (ER) | payer OTHER ==
[2019-12-29 13:49] LABS: #Eosinphils 0.2 thou/uL (0.0-0.7); #Monocytes 1.2 thou/uL (0.11-0.59); #Neutrophils 5.1 thou/uL (1.40-6.50); %Basophils 0.4 % (0.0-1.0); %Eosinophils 2.1 % (0.0-10.0); %Lymphocytes 31.7 % (21.0-51.0); %Monocytes 12.4 % (0.0-10.0); %Neutrophils 53.3 % (42.0-75.0); Hemoglobin 8.5 g/dL (12.0-16.0); Mean Corpuscular Volume 87.5 fL (78.0-98.0); Mean Platelet Volume 7.9 fL (7.4-10.4); Platelet Count 361 thou/uL (130-400); RBC Distribution Width 15.7 % (11.5-14.5); Red Blood Cell (RBC) Count 3.04 mill/uL (4.20-5.40); White Blood Cell (WBC) Count 9.6 thou/uL (4.8-10.8)
[2019-12-29 14:11] LABS: ALT (SGPT) 15 U/L (8-55); AST (SGOT) 34 U/L (5-34); Albumin 1.7 g/dL (3.4-4.8); Alkaline Phosphatase 153 U/L (40-110); Anion Gap 9 mmol/L (10-20); BUN (Urea Nitrogen) 12 mg/dL (9.8-20.1); Bilirubin, Total 0.4 mg/dL (0.2-1.2); Calc. Creatinine Clearance 0 mL/min (70-130); Calcium 7.7 mg/dL (7.8-10.44); Carbon Dioxide 25 mmol/L (23-31); Chloride 102 mmol/L (98-107); Estimated GFR-MDRD 66; Globulin 3.8 g/dL (2.4-3.5); Glucose 88 mg/dL (83-110); Potassium 3.9 mmol/L (3.5-5.1); Protein, Total 5.5 g/dL (6.0-8.3); Sodium 132 mmol/L (136-145)
[2019-12-29 14:32] LABS: CKMB 3.6 ng/mL (0-6.6)
--- NOTE | 2019-12-29 14:36 | ULT ---
EXAM: Left upper extremity venous ultrasound HISTORY: Left upper extremity pain and edema COMPARISON: None TECHNIQUE: Multiplanar grayscale and color Doppler images were obtained in a left upper extremity lou ous ultrasound. Spectral analysis of the Doppler waveforms were performed. FINDINGS: Evaluation in the antecubital fossa is limited secondary to a bandage. The internal jugular vein demonstrates normal compression and flow without evidence of thrombus. The subclavian vein demonstrates normal flow and augmentation without evidence of thrombus. The axillary and brachial veins demonstrate normal compression, flow, and augmentation without eviden ce of thrombus. The venous structures distal to the elbow are patent without thrombus. The cephalic and basilic veins are patent. A PICC line is seen in the basilic vein. IMPRESSION: No evidence of DVT.
[2019-12-29 14:37] LABS: Bilirubin Negative (Negative); Blood, Urine Small (Negative); Glucose, Urine (Dipstick) Negative (Negative); Ketone, Urine Trace mg/dL (Negative); Leukocyte Large (Negative); Nitrite Negative (Negative); Protein, Urine (Dipstick) 30 mg/dL (Neg-Trace); Specific Gravity, Urine 1.015 (1.005-1.030); Urobilinogen 0.2 mg/dL (Less than 2)
[2019-12-29 14:39] LABS: Clarity Cloudy (Clear)
[2019-12-29 14:50] LABS: Bacteria/HPF 1+ HPF (None Seen); WBC/HPF Greater Than 50 HPF (0-3); Yeast-Budding 1+ HPF (None Seen)
[2019-12-29 14:51] LABS: Yeast-Hyphae 3+ HPF (None Seen)
== END 2019-12-29 20:37 | disposition home or self-care (01) ==
LOC: ERS 12:36
DX: R60.0 Localized edema (principal); N39.0 Urinary tract infection, site not specified; D64.9 Anemia, unspecified; Z86.718 Personal history of other venous thrombosis and embolism; K21.9 Gastro-esophageal reflux disease without esophagitis; E03.9 Hypothyroidism, unspecified; I10 Essential (primary) hypertension; F17.210 Nicotine dependence, cigarettes, uncomplicated; Z79.899 Other long term (current) drug therapy
CPT/HCPCS: 36415; 80053; 81003; 81015; 82553; 83880; 84484; 85025; 87086

== ENCOUNTER 2020-01-30 13:32 | Inpatient (IN) | payer OTHER ==
[2020-01-30 14:12] LABS: #Basophils 0.1 thou/uL (0.0-0.2); #Eosinphils 0.2 thou/uL (0.0-0.7); #Lymphocytes 2.4 thou/uL (1.20-3.40); #Monocytes 0.9 thou/uL (0.11-0.59); #Neutrophils 9.3 thou/uL (1.40-6.50); %Basophils 0.5 % (0.0-1.0); %Eosinophils 1.9 % (0.0-10.0); %Lymphocytes 18.3 % (21.0-51.0); %Monocytes 7.1 % (0.0-10.0); %Neutrophils 72.3 % (42.0-75.0); Hemoglobin 10.1 g/dL (12.0-16.0); Mean Corpuscular HGB CONC 30.9 g/dL (32.0-36.0); Mean Corpuscular Hemoglobin 28.2 pg (27.0-31.0); Mean Corpuscular Volume 91.4 fL (78.0-98.0); Mean Platelet Volume 8.1 fL (7.4-10.4); Platelet Count 468 thou/uL (130-400); RBC Distribution Width 16.2 % (11.5-14.5); Red Blood Cell (RBC) Count 3.59 mill/uL (4.20-5.40); White Blood Cell (WBC) Count 12.9 thou/uL (4.8-10.8)
[2020-01-30] MEDS ORDERED: cefTRIAXone\\ROCEPHIN 1 GM VIAL ONE (14:25)
[2020-01-30 14:35] LABS: ALT (SGPT) 15 U/L (8-55); AST (SGOT) 25 U/L (5-34); Albumin 1.8 g/dL (3.4-4.8); Alkaline Phosphatase 155 U/L (40-110); Anion Gap 13 mmol/L (10-20); BUN (Urea Nitrogen) 34 mg/dL (9.8-20.1); Bilirubin, Total 0.4 mg/dL (0.2-1.2); Calc. Creatinine Clearance 0 mL/min (70-130); Carbon Dioxide 25 mmol/L (23-31); Chloride 111 mmol/L (98-107); Estimated GFR-MDRD 43; Glucose 86 mg/dL (83-110); Potassium 3.9 mmol/L (3.5-5.1); Protein, Total 6.8 g/dL (6.0-8.3); Sodium 145 mmol/L (136-145)
[2020-01-30 14:41] LABS: Bilirubin Negative (Negative); Blood, Urine Small (Negative); Glucose, Urine (Dipstick) Negative (Negative); Ketone, Urine Negative (Negative); Leukocyte Moderate (Negative); Nitrite Negative (Negative); Protein, Urine (Dipstick) 100 mg/dL (Neg-Trace); Urobilinogen 0.2 mg/dL (Less than 2)
[2020-01-30 14:47] LABS: Clarity Cloudy (Clear); pH, Urine 8.5 (5.0-9.0)
--- NOTE | 2020-01-30 14:50 | RAD ---
EXAM: Single view of the chest HISTORY: Chest pain COMPARISON: 12/18/2019 FINDINGS: Single view of the chest shows a normal sized cardiomediastinal silhouette. Atheroscleroti c calcifications are seen in the aorta. There is no evidence of consolidation, mass, or pleural effusion. No acute osseous abnormality. IMPRESSION: No evidence of acute cardiopulmonary disease
[2020-01-30 14:53] LABS: Bacteria/HPF 4+ HPF (None Seen); Transitional Epithelial 0-3 HPF (None Seen)
[2020-01-30 14:54] LABS: Yeast-Budding 4+ HPF (None Seen); Yeast-Hyphae 3+ HPF (None Seen)
[2020-01-30] MEDS ORDERED: Vancomycin 1 GM/200 ML BAG ONE (15:01)
[2020-01-30] MEDS ORDERED: Sodium Chloride 0.9% 500 ML IV SCH (17:30)
[2020-01-30] MEDS: Sodium Chloride 0.9% 1,000 ML IV SCH (18:08)
--- NOTE | 2020-01-30 18:24 | HP ---
CHIEF COMPLAINT: Change in responsiveness. HISTORY OF PRESENT ILLNESS: This is a 74-year-old female, who resides at [facility], sent here for a change in responsiveness. All history is obtained either from the emergency room personnel or the patient's daughter. The patient has baseline dementia, frequent infections to include sacral and ankle ulcers, and osteomyelitis for which she was on meropenem in the outpatient setting. She also gets UTIs that are multi-drug resistant. In addition, she has dementia and is alert and oriented x1, usually can carry on a conversation, however, unable to today. Her daughter reports that she spoke with the patient yesterday and noticed confusion or change and requested the nursing facility investigate it. When a change had been noted in the past, it was associated with infection. The patient in the emergency room not responsive, only moaning to exam. She received vancomycin 1 g IV, normal saline 30 mL/kg and 1 L, Rocephin 1 g IV and hospitalist called for admission. PAST MEDICAL HISTORY: Based on chart review: 1. Osteomyelitis of the sacrum, status post meropenem. 2. Chronic kidney disease. 3. Dementia, alert and oriented x1. 4. Schizoaffective disorder. 5. History of DVT. 6. GERD. 7. Hypothyroidism. 8. Hypertension. 9. History of breast cancer. PAST SURGICAL HISTORY: By chart review: 1. Mastectomy of the right breast. 2. Tubal ligation. SOCIAL HISTORY: Chart review shows active half pack per day tobacco use. Her daughter is her surrogate decision maker, and I discussed with her code status, which is do not resuscitate. FAMILY HISTORY: Not obtainable. REVIEW OF SYSTEMS: Not obtainable. CURRENT MEDICATIONS - based on list from the nursing facility: 1. Anastrozole 1 mg daily 2. Antacid suspension - 30 ml every 12 hours prn indigestion 3. Aspirin 325 mg daily 4. Colace 100 mg bid 5. Decubi-yohana capsule daily 6. Esomeprazole 20 mg daily 7. ferrous sulfate 325 mg bid 8. Lactobacillus 1 tab daily 9. Levothyroxine 25 mcg daily 10. Meclizine 25 mg daily prn dizziness 11. Megestrol 50 mg/ml - 5 ml daily 12. Miralax 17 grams daily prn constipation 13. Prostat 30 ml bid 14. Tylenol #4 1 tab tid 15. Valproic acid 250 mg/5ml - 10 ml bid 16. Zyprea 5 mg daily PHYSICAL EXAMINATION: VITAL SIGNS: Blood pressure 134/89, pulse 130, respirations 12, temperature 98.9, saturation 100% on room air. GENERAL: The patient keeps her eyes closed, she will moan to light touch or try to move her limbs with exam. Otherwise, she is nonverbal and nonresponsive. HEENT: Unable to accomplish. Oral mucosa is pink and dry. NECK: Supple. LYMPHATICS: No palpable anterior cervical lymphadenopathy. LUNGS: Clear to auscultation, bilateral. No audible wheezing, rhonchi, or rales. HEART: Normal S1, S2. Regular rate and rhythm. No significant murmur. ABDOMEN: Soft. Present bowel sounds. Nontender, nondistended. EXTREMITIES: Contracted, particularly her right arm and her right leg, some contraction of the left leg and left arm. Positive 2+ pitting edema, bilateral. NEUROLOGIC: Only as above. Mental status, unable to assess. Cranial nerves, unable to assess. PSYCHIATRIC: Unable to assess. VASCULAR: 2+ dorsalis pedis pulses. SKIN: She has a large sacral ulcer and a right ankle ulcer. LABORATORY DATA: Labs are personally reviewed. CBC; 12.9, 10.1, 32.8, 468. Chemistry; 145, 3.9, 111, 25, 34, 1.22, 86. Alkaline phosphatase 155, total protein 6.8, albumin 1.8. Urinalysis shows 100 protein, moderate leukocyte esterase, 7 to 10 white blood cells, 4 to 6 red blood cells. EKG, personally reviewed; normal axis, sinus rhythm, tachycardic to the 110s. No ST changes. IMPRESSION: 1. Sepsis in a patient with a history of osteomyelitis, current sacral and ankle wounds, recurrent multi-drug resistant urinary tract infections. 2. Dementia with encephalopathy secondary to above. 3. Hypertension. 4. Hypothyroidism. 5. Anemia. 6. Chronic kidney disease. 7. Hypoalbuminemia. 8. Schizoaffective disorder. PLAN: 1. Admission to the hospital. 2. Monitoring on telemetry. 3. IV fluid hydration. We will add IV albumin due to the significant, severely low albumin level to improve hydration, at least temporarily. 4. Starting the meropenem, continuing vancomycin with pharmacy to dose and ID consult. 5. Holding all of her outpatient medications. 6. Monitoring the level of anemia as well as her renal function. 7. Dietitian consult when the patient is responsive, anticipate advancing diet, n.p.o. for now. 8. Palliative Care consult to discuss the frequent hospitalizations and infection and provide support for the patient's daughter who is her surrogate decision maker. 9. Given the change in her mental status, we will check a CT of the brain without contrast. 10. DVT prophylaxis with enoxaparin, renally dose. 11. GI prophylaxis. We will start IV Protonix given that she is n.p.o. for now. 12. Code status is do not resuscitate, confirmed with the patient's daughter by phone. 13. Reviewed the plan of care with the patient's daughter, who demonstrates understanding, no questions or further needs at the end of evaluation. 14. The patient is at high risk given age, comorbidities, and current presentation. Job ID: [id number] MTD[facility]
--- NOTE | 2020-01-30 19:04 | CT ---
CT Brain WO Con: 01/30/2020 6:45 PM CLINICAL HISTORY: altered mental status with oxygen desaturation and history of dementia. IMAGING TECHNIQUE: Multiple CT images were obtained of the brain without IV contrast. COMPARISON: Prior exam dated November 18, 2019 FINDINGS: BRAIN: Evidence of acute infarct: None. Evidence of chronic ischemic change:There is moderate chronic small vessel white matter ischemic penny ge which is stable. There is diffuse cerebral and cerebellar atrophy which is stable. Evidence of intracranial hemorrhage: None. Evidence of midline shift: Third ventricle and septum pellucidum are midline. Ventricles: Normal. No hydrocephalus. SKULL: Intact. VISUALIZED PARANASAL SINUSES: Clear. MASTOID AIR CELLS: Clear. EXTRACRANIAL SOFT TISSUES: Normal. IMPRESSION: No acute intracranial abnormality.
--- NOTE | 2020-01-30 20:59 | PDOC.EVN ---
Event Note - Event Note Event Note: called by the RN for agitation in patient. Pt is on zyprexa at the [facility]. Will order prn low dose Haldol for agitation.
[2020-01-30] MEDS: Haloperidol Lactate 5 MG/ML VIAL IM PRN (22:02)
[2020-01-30] MEDS: Meropenem 500 MG in Sodium Chloride 0.9% 100 ML IVPB SCH (22:04)
[2020-01-30] MEDS: Albumin 25% 25 GM/100 ML BOT IVPB SCH ×2 (22:05→23:10)
[2020-01-31] MEDS: Albumin 25% 25 GM/100 ML BOT IVPB SCH ×4 (00:46→10:27)
[2020-01-31] MEDS: Acetaminophen 650 MG Suppository PR PRN ×2 (00:47→08:27)
[2020-01-31 04:53] LABS: #Eosinphils 0.1 thou/uL (0.0-0.7); #Monocytes 0.8 thou/uL (0.11-0.59); #Neutrophils 5.1 thou/uL (1.40-6.50); %Basophils 0.4 % (0.0-1.0); %Eosinophils 1.9 % (0.0-10.0); %Lymphocytes 24.6 % (21.0-51.0); %Neutrophils 63.2 % (42.0-75.0); Hemoglobin 7.6 g/dL (12.0-16.0); Mean Corpuscular HGB CONC 32.6 g/dL (32.0-36.0); Mean Corpuscular Hemoglobin 30.2 pg (27.0-31.0); Mean Corpuscular Volume 92.8 fL (78.0-98.0); Platelet Count 282 thou/uL (130-400); RBC Distribution Width 16.1 % (11.5-14.5); Red Blood Cell (RBC) Count 2.52 mill/uL (4.20-5.40)
[2020-01-31 05:15] LABS: Anion Gap 14 mmol/L (10-20); BUN (Urea Nitrogen) 31 mg/dL (9.8-20.1); Calc. Creatinine Clearance 46 mL/min (70-130); Calcium 7.5 mg/dL (7.8-10.44); Carbon Dioxide 21 mmol/L (23-31); Chloride 114 mmol/L (98-107); Estimated GFR-MDRD 48; Glucose 77 mg/dL (83-110); Potassium 3.4 mmol/L (3.5-5.1); Sodium 146 mmol/L (136-145)
[2020-01-31] MEDS: Haloperidol Lactate 5 MG/ML VIAL IM PRN (06:36)
[2020-01-31] MEDS: Meropenem 500 MG in Sodium Chloride 0.9% 100 ML IVPB SCH ×3 (07:10→21:47)
[2020-01-31] MEDS: Enoxaparin Sodium 30 MG/0.3 ML SYRINGE SC SCH (08:30)
[2020-01-31] MEDS: Pantoprazole 40 MG VIAL IVP SCH (08:31)
[2020-01-31] MEDS: Sodium Chloride 0.9% 1,000 ML IV SCH (08:34)
[2020-01-31] MEDS ORDERED: FLU VACC QS2020-21(65YR UP)/PF 240 MCG/0.7 ML SYRINGE IM ONE (09:00)
[2020-01-31] MEDS: Dextrose 5 %-0.45 % NaCl 1,000 ML IV SCH (10:19)
[2020-01-31 11:39] LABS: SARS-CoV-2 MS2 Positive; SARS-CoV-2 N Gene Negative; SARS-CoV-2 S Gene Negative; SARS-CoV-2 by NAA Not Detected (NotDetected); SARS-CoV-2 orf1ab Negative
--- NOTE | 2020-01-31 14:18 | PDOC.HOSPP ---
- Subjective Encounter Date: 01/31/20 Subjective: The patient remains confused and minimally responsive. - Objective Vital Signs & Weight: Vital Signs (12 hours) Temp Pulse Resp BP Pulse Ox 01/31/20 11:04 98.9 F 115 H 22 H 131/76 93 L 01/31/20 07:05 99.1 F 114 H 20 132/67 94 L 01/31/20 05:04 98.2 F 112 H 145/67 H 94 L Weight Weight 144 lb 2.917 oz I&O: 01/30/20 01/31/20 02/01/20 06:59 06:59 06:59 Intake Total 1060 Output Total 240 Balance 820 Result Diagrams: 01/31/20 04:27 01/31/20 04:27 Hospitalist ROS - Medication Medications: Active Medications Generic Name Dose Route Start Last Admin Trade Name Freq PRN Reason Stop Dose Admin Acetaminophen 650 mg 01/30/20 17:15 01/31/20 08:27 Acetaminophen 650 Mg Suppository [place] 650 mg Q4H PRN Administration Headache/Fever/Mild Pain (1-3) Enoxaparin Sodium 30 mg 01/31/20 09:00 01/31/20 08:30 Enoxaparin Sodium 30 Mg/0.3 Ml Syringe SC 30 mg 0900 JOSE ROBERTO Administration Haloperidol Lactate 1 mg 01/30/20 20:58 01/31/20 06:36 Haloperidol Lactate 5 Mg/Ml Vial IM 1 mg Q4H PRN Administration Agitation Meropenem 500 mg/ Sodium 100 mls @ 200 mls/hr 01/30/20 22:00 01/31/20 07:10 Chloride IVPB 100 mls Q8HR JOSE ROBERTO Administration Dextrose/Sodium Chloride 1,000 mls @ 75 mls/hr 01/31/20 09:45 01/31/20 10:19 D5 1/2 Ns IV 1,000 mls .[id number] JOSE ROBERTO Administration Pantoprazole Sodium 40 mg 01/31/20 09:00 01/31/20 08:31 Pantoprazole 40 Mg Vial IVP 40 mg DAILY JOSE ROBERTO Administration Sodium Chloride 10 ml 01/31/20 09:00 01/31/20 08:30 Flush - Normal Saline 10 Ml Syringe IVF 10 ml Q12HR JOSE ROBERTO Administration - Exam ENT: normocephalic atraumatic Neck: supple, no JVD Respiratory: CTAB, no wheezes, no rales, no ronchi, normal chest expansion Gastrointestinal: soft, non-tender, non-distended Hosp A/P (1) Acute metabolic encephalopathy Code(s): G93.41 - METABOLIC ENCEPHALOPATHY Status: Acute (2) Osteomyelitis Code(s): M86.9 - OSTEOMYELITIS, UNSPECIFIED Status: Acute (3) UTI (urinary tract infection) Status: Acute Qualifiers: Urinary tract infection type: acute cystitis (4) Dementia Code(s): F03.90 - UNSPECIFIED DEMENTIA WITHOUT BEHAVIORAL DISTURBANCE Status: Chronic (5) Hypertension Code(s): I10 - ESSENTIAL (PRIMARY) HYPERTENSION Status: Chronic (6) Hypothyroidism Code(s): E03.9 - HYPOTHYROIDISM, UNSPECIFIED Status: Chronic (7) Parkinson disease Code(s): G20 - PARKINSON'S DISEASE Status: Chronic (8) Schizo affective schizophrenia Code(s): F25.9 - SCHIZOAFFECTIVE DISORDER, UNSPECIFIED Status: Chronic - Plan Continue IV antibiotic for sacral and ankle osteomyelitis. Follow the final results of the urine cultures. Leukocytosis improving. Continue Haldol as needed. Lovenox for DVT prophylaxis.
[2020-01-31] MEDS: Vancomycin 1 GM in Premix Bag 1 BAG IVPB SCH (14:48)
[2020-02-01] MEDS: Meropenem 500 MG in Sodium Chloride 0.9% 100 ML IVPB SCH ×3 (06:00→20:28)
[2020-02-01] MEDS: Dextrose 5 %-0.45 % NaCl 1,000 ML IV SCH ×2 (06:03→20:27)
[2020-02-01] MEDS: Enoxaparin Sodium 30 MG/0.3 ML SYRINGE SC SCH (08:33)
[2020-02-01] MEDS: Pantoprazole 40 MG VIAL IVP SCH (08:33)
[2020-02-01 09:53] LABS: #Eosinphils 0.2 thou/uL (0.0-0.7); #Lymphocytes 1.6 thou/uL (1.20-3.40); #Monocytes 0.7 thou/uL (0.11-0.59); #Neutrophils 4.9 thou/uL (1.40-6.50); %Basophils 0.6 % (0.0-1.0); %Eosinophils 3.2 % (0.0-10.0); %Lymphocytes 20.8 % (21.0-51.0); %Monocytes 9.3 % (0.0-10.0); %Neutrophils 66.1 % (42.0-75.0); Hemoglobin 8.1 g/dL (12.0-16.0); Mean Corpuscular HGB CONC 31.6 g/dL (32.0-36.0); Mean Corpuscular Volume 94.8 fL (78.0-98.0); Platelet Count 260 thou/uL (130-400); RBC Distribution Width 16.4 % (11.5-14.5); Red Blood Cell (RBC) Count 2.71 mill/uL (4.20-5.40); White Blood Cell (WBC) Count 7.5 thou/uL (4.8-10.8)
[2020-02-01 10:18] LABS: Anion Gap 13 mmol/L (10-20); BUN (Urea Nitrogen) 22 mg/dL (9.8-20.1); Calc. Creatinine Clearance 54 mL/min (70-130); Calcium 8.1 mg/dL (7.8-10.44); Carbon Dioxide 21 mmol/L (23-31); Chloride 115 mmol/L (98-107); Estimated GFR-MDRD 57; Glucose 121 mg/dL (83-110); Sodium 146 mmol/L (136-145)
[2020-02-01 15:08] LABS: Vancomycin, Trough 18.4 ug/mL
[2020-02-01] MEDS: Vancomycin 1 GM in Premix Bag 1 BAG IVPB SCH (16:21)
--- NOTE | 2020-02-01 16:50 | PDOC.PALCO ---
Palliative Care Consult - Consult Details Requesting Physician: Dr Shabazz Reason for Consult: goals of care, complex decision-making - Pertinent HPI 74 year old female who is a resident at [facility], she became unresponsive and was sent to [facility] for further evaluation. Known history of dementia, with frequent infections and alteration in skin integrity. Base line is only oriented x1 but able to engage in conversation. However, not responsive at presentation to emergency room. Admitted to hospital for management of identified sepsis. - Pertinent PMH CKD, Dementia, Schizoaffective disorder, GERD, Hypothyroid, HTN, History of breast cancer. - Social History Smoking Status: Smokes 0-10 cigs daily Smoking: less than 1 pack/day Alcohol Use: none Drug Use History: none Living Situation: long term resident - Medications MAR Reviewed: Yes - Allergies Allergies/Adverse Reactions: Allergies Allergy/AdvReac Type Severity Reaction Status Date / Time No Known Drug Allergies Allergy Verified 12/19/19 01:58 - Subjective Sleeping, arouses but non verbal and quickly returns to sleep state - ROS Non Response: due to mental status - Objective Vital Signs: Vital Signs - Most Recent Temp Pulse Resp BP Pulse Ox 98.1 F 117 H 21 H 181/79 H 94 L 02/01/20 16:00 02/01/20 16:00 02/01/20 16:00 02/01/20 16:00 02/01/20 16:00 Palliative Performance Scale: 30 - Physical Exam Constitutional: confusion, encephalitic, ill appearing HEENT: EOMI, moist MMs Respiratory: no rales, no rhonchi, no wheezing, unlabored breathing, diminished lung sound Cardiovascular: no significant murmur, RRR Gastrointestinal: non-tender, positive bowel sounds, incontinent Genitourinary: deutsch catheter Musculoskeletal: pulses present, edema present Skin: bruising, fragile, friable Deviation from normal: Sacral and right ankle ulcer Deviation from normal: encephalopathic, - Problem List (1) AMS (altered mental status) Code(s): R41.82 - ALTERED MENTAL STATUS, UNSPECIFIED Current Visit: No Status: Acute (2) Acute metabolic encephalopathy Code(s): G93.41 - METABOLIC ENCEPHALOPATHY Current Visit: No Status: Acute (3) Acute on chronic kidney failure Code(s): N17.9 - ACUTE KIDNEY FAILURE, UNSPECIFIED; N18.9 - CHRONIC KIDNEY DISEASE, UNSPECIFIED Current Visit: No Status: Acute Qualifiers: Chronic kidney disease stage: stage 3 (moderate) (4) Complicated UTI (urinary tract infection) Code(s): N39.0 - URINARY TRACT INFECTION, SITE NOT SPECIFIED Current Visit: No Status: Acute (5) Hypertension Code(s): I10 - ESSENTIAL (PRIMARY) HYPERTENSION Current Visit: No Status: Chronic (6) Hypothyroidism Code(s): E03.9 - HYPOTHYROIDISM, UNSPECIFIED Current Visit: No Status: Chronic (7) Schizo affective schizophrenia Code(s): F25.9 - SCHIZOAFFECTIVE DISORDER, UNSPECIFIED Current Visit: No Status: Chronic - Plan/Recommendations Plan: Palliative Care discussed with patient daughters declining functional status and poor meaningful recovery. Although No MPOA Dejah, patient daughter, is patient decision maker. Therapeutic listening as well as emotional support. Family is agreeable for transition back to [facility] with hospice care to manage symptoms related to terminal condition and forgo aggressive treatments. Confirmed DNAR status. Patient daughter Dejah is unable to come to hospital to complete OOHDNAR, her sister Chester is planning on coming to facilitate completion of document. Sylvie Burgess CM with Palliative Care notified CM. [55] minutes spent on this encounter with >50% of the time in counseling and coordination of care. Thank you for this very appropriate consult.
--- NOTE | 2020-02-01 16:55 | PDOC.HOSPP ---
- Subjective Encounter Date: 02/01/20 Subjective: Remains confused. - Objective Vital Signs & Weight: Vital Signs (12 hours) Temp Pulse Resp BP BP Pulse Ox 02/01/20 16:00 98.1 F 117 H 21 H 181/79 H 94 L 02/01/20 12:00 98 F 101 H 20 161/74 H 02/01/20 08:00 97.1 F L 100 20 152/71 H 94 L Weight Admit Weight 144 lb 2.917 oz Weight 147 lb 11.355 oz I&O: 01/31/20 02/01/20 02/02/20 06:59 06:59 06:59 Intake Total 1060 1212.5 1145 Output Total 240 1100 Balance 820 1212.5 45 Result Diagrams: 02/01/20 09:44 02/01/20 09:44 Hospitalist ROS - Medication Medications: Active Medications Generic Name Dose Route Start Last Admin Trade Name Freq PRN Reason Stop Dose Admin Acetaminophen 650 mg 01/30/20 17:15 01/31/20 08:27 Acetaminophen 650 Mg Suppository MT 650 mg Q4H PRN Administration Headache/Fever/Mild Pain (1-3) Enoxaparin Sodium 30 mg 01/31/20 09:00 02/01/20 08:33 Enoxaparin Sodium 30 Mg/0.3 Ml Syringe SC 30 mg 0900 JOSE ROBERTO Administration Haloperidol Lactate 1 mg 01/30/20 20:58 01/31/20 06:36 Haloperidol Lactate 5 Mg/Ml Vial IM 1 mg Q4H PRN Administration Agitation Meropenem 500 mg/ Sodium 100 mls @ 200 mls/hr 01/30/20 22:00 02/01/20 14:53 Chloride IVPB 100 mls Q8HR JOSE ROBERTO Administration Vancomycin HCl 1 gm/ Device 200 mls @ 200 mls/hr 01/31/20 15:00 02/01/20 16:21 IVPB 200 mls Q24HR JOSE ROBERTO Administration Dextrose/Sodium Chloride 1,000 mls @ 75 mls/hr 01/31/20 09:45 02/01/20 06:03 D5 1/2 Ns IV Not Given .[id number] JOSE ROBERTO Pantoprazole Sodium 40 mg 01/31/20 09:00 02/01/20 08:33 Pantoprazole 40 Mg Vial IVP 40 mg DAILY JOSE ROBERTO Administration Sodium Chloride 10 ml 01/31/20 09:00 02/01/20 08:36 Flush - Normal Saline 10 Ml Syringe IVF 10 ml Q12HR JOSE ROBERTO Administration - Exam ENT: normocephalic atraumatic Neck: supple, no JVD Heart: RRR Respiratory: normal chest expansion, no tachypnea Extremities: no cyanosis, no clubbing Hosp A/P (1) Acute metabolic encephalopathy Code(s): G93.41 - METABOLIC ENCEPHALOPATHY Status: Acute (2) Osteomyelitis Code(s): M86.9 - OSTEOMYELITIS, UNSPECIFIED Status: Acute (3) UTI (urinary tract infection) Status: Acute (4) Dementia Code(s): F03.90 - UNSPECIFIED DEMENTIA WITHOUT BEHAVIORAL DISTURBANCE Status: Chronic (5) Hypertension Code(s): I10 - ESSENTIAL (PRIMARY) HYPERTENSION Status: Chronic (6) Hypothyroidism Code(s): E03.9 - HYPOTHYROIDISM, UNSPECIFIED Status: Chronic (7) Parkinson disease Code(s): G20 - PARKINSON'S DISEASE Status: Chronic (8) Schizo affective schizophrenia Code(s): F25.9 - SCHIZOAFFECTIVE DISORDER, UNSPECIFIED Status: Chronic - Plan Continue IV antibiotic for sacral and ankle osteomyelitis. Follow the final results of the urine cultures. Hypernatremia and hyperkalemia are present. continue current IVF and replace potassium. Given her comorbidities and quality of life( Persistent pain with mobility, poor mental status and inability to tolerate oral intake safely), I belive hospice s hould be discussed with the family. I will consult palliative care. Continue Haldol as needed. Lovenox for DVT prophylaxis.
[2020-02-01] MEDS: Acetaminophen 650 MG Suppository PR PRN (17:46)
[2020-02-01] MEDS: Potassium Chloride 20 MEQ in Premix Bag 1 BAG IVPB SCH ×2 (17:47→20:27)
[2020-02-01] MEDS ORDERED: Potassium Chloride 20 MEQ in Premix Bag 1 BAG IVPB SCH (18:00)
[2020-02-02] MEDS: Dextrose 5 %-0.45 % NaCl 1,000 ML IV SCH ×2 (02:52→14:12)
[2020-02-02] MEDS: Meropenem 500 MG in Sodium Chloride 0.9% 100 ML IVPB SCH ×3 (05:15→21:37)
[2020-02-02] MEDS: Morphine 2 MG/ML VIAL SLOW IVP PRN ×4 (06:12→21:38)
[2020-02-02] MEDS: Pantoprazole 40 MG VIAL IVP SCH (08:37)
[2020-02-02] MEDS: Enoxaparin Sodium 30 MG/0.3 ML SYRINGE SC SCH (08:38)
[2020-02-02 09:33] LABS: #Eosinphils 0.4 thou/uL (0.0-0.7); #Lymphocytes 1.4 thou/uL (1.20-3.40); %Basophils 0.7 % (0.0-1.0); %Eosinophils 5.5 % (0.0-10.0); %Lymphocytes 20.6 % (21.0-51.0); %Monocytes 14.8 % (0.0-10.0); %Neutrophils 58.4 % (42.0-75.0); Hemoglobin 8.4 g/dL (12.0-16.0); Mean Corpuscular HGB CONC 31.2 g/dL (32.0-36.0); Mean Corpuscular Hemoglobin 29.1 pg (27.0-31.0); Mean Corpuscular Volume 93.2 fL (78.0-98.0); Mean Platelet Volume 8.1 fL (7.4-10.4); Platelet Count 240 thou/uL (130-400); RBC Distribution Width 16.6 % (11.5-14.5); Red Blood Cell (RBC) Count 2.89 mill/uL (4.20-5.40); White Blood Cell (WBC) Count 6.9 thou/uL (4.8-10.8)
[2020-02-02 09:48] LABS: Anion Gap 8 mmol/L (10-20); BUN (Urea Nitrogen) 19 mg/dL (9.8-20.1); Calc. Creatinine Clearance 56 mL/min (70-130); Calcium 7.4 mg/dL (7.8-10.44); Carbon Dioxide 22 mmol/L (23-31); Chloride 116 mmol/L (98-107); Estimated GFR-MDRD 59; Glucose 102 mg/dL (83-110); Potassium 3.3 mmol/L (3.5-5.1); Sodium 143 mmol/L (136-145)
--- NOTE | 2020-02-02 14:31 | PDOC.PALPN ---
Palliative Progress Note - Subjective Sleeping, difficult to arouse, non verbal and returns to sleep state - Objective Vital Signs: Vital Signs - Most Recent Temp Pulse Resp BP Pulse Ox 99.3 F 98 13 164/73 H 100 02/02/20 12:08 02/02/20 12:08 02/02/20 12:08 02/02/20 12:08 02/02/20 07:43 - Physical Exam Constitutional: encephalitic, ill appearing HEENT: EOMI, moist MMs, poor dentition Respiratory: unlabored breathing, diminished lung sound Cardiovascular: RRR, diminished peripheral pulses Gastrointestinal: soft, non-tender, incontinent Genitourinary: deutsch catheter Musculoskeletal: no cyanosis, no clubbing Skin: fragile Deviation from normal: Pallor Deviation from normal: lethargic - Assessment (1) AMS (altered mental status) Code(s): R41.82 - ALTERED MENTAL STATUS, UNSPECIFIED Current Visit: No Status: Acute (2) Acute metabolic encephalopathy Code(s): G93.41 - METABOLIC ENCEPHALOPATHY Current Visit: No Status: Acute (3) Acute on chronic kidney failure Code(s): N17.9 - ACUTE KIDNEY FAILURE, UNSPECIFIED; N18.9 - CHRONIC KIDNEY DISEASE, UNSPECIFIED Current Visit: No Status: Acute Qualifiers: Chronic kidney disease stage: stage 3 (moderate) (4) Complicated UTI (urinary tract infection) Code(s): N39.0 - URINARY TRACT INFECTION, SITE NOT SPECIFIED Current Visit: No Status: Acute (5) Hypertension Code(s): I10 - ESSENTIAL (PRIMARY) HYPERTENSION Current Visit: No Status: Chronic (6) Hypothyroidism Code(s): E03.9 - HYPOTHYROIDISM, UNSPECIFIED Current Visit: No Status: Chronic (7) Schizo affective schizophrenia Code(s): F25.9 - SCHIZOAFFECTIVE DISORDER, UNSPECIFIED Current Visit: No Status: Chronic - Plan Plan: Met with patient daughter Katia at bedside. Communicated understanding of disease process and trajectory related to decline. Family had opted to seek Hospice to manage symptoms related to terminal condition upon return to previous shelter. Emotional support, therapeutic listening, and questions answered. Palliative Care will sign off as Goal of Care has been identified and DNAR confirmed /OOHDNAR signed and placed on chart for physician signature. [40] minutes spent on this encounter with >50% of the time in counseling and coordination of care. - ROS Non Response: due to mental status
--- NOTE | 2020-02-02 14:38 | PDOC.FMACP ---
Advance Care Planning - Problem (1) AMS (altered mental status) Status: Acute Code(s): R41.82 - ALTERED MENTAL STATUS, UNSPECIFIED (2) Acute metabolic encephalopathy Status: Acute Code(s): G93.41 - METABOLIC ENCEPHALOPATHY (3) Acute on chronic kidney failure Status: Acute Code(s): N17.9 - ACUTE KIDNEY FAILURE, UNSPECIFIED; N18.9 - CHRONIC KIDNEY DISEASE, UNSPECIFIED Qualifiers: Chronic kidney disease stage: stage 3 (moderate) (4) Complicated UTI (urinary tract infection) Status: Acute Code(s): N39.0 - URINARY TRACT INFECTION, SITE NOT SPECIFIED (5) Hypertension Status: Chronic Code(s): I10 - ESSENTIAL (PRIMARY) HYPERTENSION (6) Hypothyroidism Status: Chronic Code(s): E03.9 - HYPOTHYROIDISM, UNSPECIFIED (7) Schizo affective schizophrenia Status: Chronic Code(s): F25.9 - SCHIZOAFFECTIVE DISORDER, UNSPECIFIED - Note Participants: family, surrogate decision-maker, palliative care Summary: Revisited Advanced Care Planning with patient daughters. The diagnosis, prognosis and goals of care were discussed. Appropriate forms and documentation to accomplish the goals of care were discussed. All questions were answered. Confirmed transition to Hospice, continuation of DNAR. OOHDNAR completed by [facility] and awaiting physician signature on patient chart. Please also refer to Palliative Care notes in note section. Time Spent (mins): 15
--- NOTE | 2020-02-02 14:49 | PDOC.HOSPP ---
- Subjective Encounter Date: 02/02/20 Subjective: Patient remains significantly altered. She is resting well today and does not appear to be in distress. - Objective Vital Signs & Weight: Vital Signs (12 hours) Temp Pulse Resp BP BP Pulse Ox 02/02/20 12:08 99.3 F 98 13 164/73 H 02/02/20 07:43 98.2 F 90 17 135/65 100 02/02/20 07:27 100 02/02/20 03:34 98.3 F 92 14 133/63 96 Weight Admit Weight 144 lb 2.917 oz Weight 147 lb 14.883 oz I&O: 02/01/20 02/02/20 02/03/20 06:59 06:59 06:59 Intake Total 1212.5 2177 Output Total 1700 Balance 1212.5 477 Result Diagrams: 02/02/20 09:24 02/02/20 09:24 Hospitalist ROS - Medication Medications: Active Medications Generic Name Dose Route Start Last Admin Trade Name Freq PRN Reason Stop Dose Admin Acetaminophen 650 mg 01/30/20 17:15 02/01/20 17:46 Acetaminophen 650 Mg Suppository IA 650 mg Q4H PRN Administration Headache/Fever/Mild Pain (1-3) Enoxaparin Sodium 30 mg 01/31/20 09:00 02/02/20 08:38 Enoxaparin Sodium 30 Mg/0.3 Ml Syringe SC 30 mg 0900 JOSE ROBERTO Administration Haloperidol Lactate 1 mg 01/30/20 20:58 01/31/20 06:36 Haloperidol Lactate 5 Mg/Ml Vial IM 1 mg Q4H PRN Administration Agitation Meropenem 500 mg/ Sodium 100 mls @ 200 mls/hr 01/30/20 22:00 02/02/20 13:54 Chloride IVPB 100 mls Q8HR JOSE ROBERTO Administration Vancomycin HCl 1 gm/ Device 200 mls @ 200 mls/hr 01/31/20 15:00 02/01/20 16:21 IVPB 200 mls Q24HR JOSE ROBERTO Administration Dextrose/Sodium Chloride 1,000 mls @ 75 mls/hr 01/31/20 09:45 02/02/20 14:12 D5 1/2 Ns IV 1,000 mls .[id number] JOSE ROBERTO Administration Morphine Sulfate 2 mg 01/31/20 10:37 02/02/20 12:21 Morphine 2 Mg/Ml Vial SLOW IVP 2 mg Q4H PRN Administration Pain Pantoprazole Sodium 40 mg 01/31/20 09:00 02/02/20 08:37 Pantoprazole 40 Mg Vial IVP 40 mg DAILY JOSE ROBERTO Administration Sodium Chloride 10 ml 01/31/20 09:00 02/02/20 08:39 Flush - Normal Saline 10 Ml Syringe IVF Not Given Q12HR JOSE ROBERTO - Exam ENT: normocephalic atraumatic Neck: supple Respiratory: normal chest expansion, no tachypnea Extremities: no cyanosis, no clubbing Hosp A/P (1) Acute metabolic encephalopathy Code(s): G93.41 - METABOLIC ENCEPHALOPATHY Status: Acute (2) Osteomyelitis Code(s): M86.9 - OSTEOMYELITIS, UNSPECIFIED Status: Acute (3) UTI (urinary tract infection) Status: Acute Qualifiers: Urinary tract infection type: acute cystitis (4) Dementia Code(s): F03.90 - UNSPECIFIED DEMENTIA WITHOUT BEHAVIORAL DISTURBANCE Status: Chronic (5) Hypertension Code(s): I10 - ESSENTIAL (PRIMARY) HYPERTENSION Status: Chronic (6) Hypothyroidism Code(s): E03.9 - HYPOTHYROIDISM, UNSPECIFIED Status: Chronic (7) Parkinson disease Code(s): G20 - PARKINSON'S DISEASE Status: Chronic (8) Schizo affective schizophrenia Code(s): F25.9 - SCHIZOAFFECTIVE DISORDER, UNSPECIFIED Status: Chronic - Plan Continue IV antibiotic for sacral and ankle osteomyelitis. Urine culture showing growth of Proteus mirabilis. Hypernatremia and hyperkalemia are present. continue current IVF and replace potassium. Given her comorbidities and quality of life( Persistent pain with mobility, poor mental status and inability to tolerate oral intake safely), nonaggressive measures were discussed with the family and they decided to pursue hospice care. Pending placement. Continue Haldol as needed. Lovenox for DVT prophylaxis.
[2020-02-02] MEDS: Vancomycin 1 GM in Premix Bag 1 BAG IVPB SCH (14:53)
[2020-02-03] MEDS: Morphine 2 MG/ML VIAL SLOW IVP PRN ×3 (03:31→15:39)
[2020-02-03] MEDS: Dextrose 5 %-0.45 % NaCl 1,000 ML IV SCH (03:31)
[2020-02-03] MEDS: Meropenem 500 MG in Sodium Chloride 0.9% 100 ML IVPB SCH ×2 (05:30→14:18)
[2020-02-03 08:43] LABS: #Basophils 0.1 thou/uL (0.0-0.2); #Eosinphils 0.2 thou/uL (0.0-0.7); #Lymphocytes 2.2 thou/uL (1.20-3.40); #Neutrophils 4.1 thou/uL (1.40-6.50); %Basophils 0.7 % (0.0-1.0); %Eosinophils 2.6 % (0.0-10.0); %Lymphocytes 29.6 % (21.0-51.0); %Monocytes 12.8 % (0.0-10.0); %Neutrophils 54.3 % (42.0-75.0); Hemoglobin 8.2 g/dL (12.0-16.0); Mean Corpuscular HGB CONC 31.8 g/dL (32.0-36.0); Mean Corpuscular Volume 94.2 fL (78.0-98.0); Mean Platelet Volume 8.2 fL (7.4-10.4); Platelet Count 225 thou/uL (130-400); RBC Distribution Width 16.7 % (11.5-14.5); Red Blood Cell (RBC) Count 2.74 mill/uL (4.20-5.40); White Blood Cell (WBC) Count 7.5 thou/uL (4.8-10.8)
[2020-02-03] MEDS: Enoxaparin Sodium 30 MG/0.3 ML SYRINGE SC SCH (08:49)
[2020-02-03 08:50] LABS: Anion Gap 11 mmol/L (10-20); BUN (Urea Nitrogen) 13 mg/dL (9.8-20.1); Calc. Creatinine Clearance 63 mL/min (70-130); Calcium 7.4 mg/dL (7.8-10.44); Carbon Dioxide 19 mmol/L (23-31); Chloride 113 mmol/L (98-107); Estimated GFR-MDRD 68; Glucose 107 mg/dL (83-110); Potassium 3.2 mmol/L (3.5-5.1); Sodium 140 mmol/L (136-145)
[2020-02-03] MEDS: Pantoprazole 40 MG VIAL IVP SCH (08:50)
[2020-02-03] MEDS: Vancomycin 1 GM in Premix Bag 1 BAG IVPB SCH ×2 (14:18→16:25)
[2020-02-03 14:57] LABS: Vancomycin, Trough 24.7 ug/mL
--- NOTE | 2020-02-03 15:32 | PDOC.PALPN ---
Palliative Progress Note - Subjective Makes eye contact when spoken to, however remains nonverbal and unable to follow any requests during assessment. - Objective Vital Signs: Vital Signs - Most Recent Temp Pulse Resp BP Pulse Ox 98.6 F 83 17 138/80 97 02/03/20 08:00 02/03/20 08:00 02/03/20 08:00 02/03/20 08:00 02/03/20 08:00 - Physical Exam Constitutional: confusion, ill appearing HEENT: moist MMs Respiratory: unlabored breathing Cardiovascular: irregular Gastrointestinal: soft, non-tender, no distention Genitourinary: deutsch catheter Musculoskeletal: edema present Deviation from normal: contracted to extremities Skin: bruising, fragile Deviation from normal: Non responsive - Assessment (1) AMS (altered mental status) Code(s): R41.82 - ALTERED MENTAL STATUS, UNSPECIFIED Current Visit: No Status: Acute (2) Acute metabolic encephalopathy Code(s): G93.41 - METABOLIC ENCEPHALOPATHY Current Visit: No Status: Acute (3) Acute on chronic kidney failure Code(s): N17.9 - ACUTE KIDNEY FAILURE, UNSPECIFIED; N18.9 - CHRONIC KIDNEY DISEASE, UNSPECIFIED Current Visit: No Status: Acute Qualifiers: Chronic kidney disease stage: stage 3 (moderate) (4) Complicated UTI (urinary tract infection) Code(s): N39.0 - URINARY TRACT INFECTION, SITE NOT SPECIFIED Current Visit: No Status: Acute (5) Hypertension Code(s): I10 - ESSENTIAL (PRIMARY) HYPERTENSION Current Visit: No Status: Chronic (6) Hypothyroidism Code(s): E03.9 - HYPOTHYROIDISM, UNSPECIFIED Current Visit: No Status: Chronic (7) Schizo affective schizophrenia Code(s): F25.9 - SCHIZOAFFECTIVE DISORDER, UNSPECIFIED Current Visit: No Status: Chronic - Plan Plan: Lengthy conversation with patient daughters Dejah and Anuel. Discussed disease progression, multiple hospital admissions and what would Ms Paz desire for care. Dejah confirmed that her mother would not desire to prolong life if not quality or meaningful. Understanding of transition to Hospice Communicated with [facility] for follow up with teaching in relation to disease progression and symptom management at end of life. Dejah who is surrogate decision maker is agreeable to diet with risk. [75] minutes spent on this encounter with >50% of the time in counseling and coordination of care. - ROS Non Response: due to mental status
[2020-02-03 15:55] VITALS: BP 136/78; TEMP 97.9
[2020-02-03 16:49] VITALS: BMI 25.2
[2020-02-03] MEDS ORDERED: Vancomycin HCl 750 MG in Sodium Chloride 0.9% 250 ML 250 ML IVPB SCH (17:00)
--- NOTE | 2020-02-04 01:51 | DIS ---
DATE OF ADMISSION: 01/30/2020 DATE OF DISCHARGE: 02/03/2020 DISCHARGE DIAGNOSES: 1. Dementia. 2. Sacral and ankle osteomyelitis. 3. Urinary tract infection. 4. Hypertension. 5. Hypothyroidism. 6. Parkinson disease. 7. Schizoaffective disorder. DISCHARGE MEDICATIONS: Those are unchanged from the patient's home medications. HISTORY OF PRESENT ILLNESS AND HOSPITAL COURSE: The patient is a 75-year-old female with past medical history of dementia, schizoaffective disorder, hypothyroidism, hypertension, breast cancer and sacral osteomyelitis, who [facility] [place] and was sent to our facility due to decreased responsiveness. The patient is largely bedbound and confused. Her urinalysis revealed presence of urinary tract infection, which the patient has had multiple times in the past including infections with multidrug resistant organisms. She has been receiving meropenem and vancomycin for her osteomyelitis. The patient remained minimally responsive through her hospital stay. She appears to be in significant pain whenever we try to mobilize her. Speech evaluation was done and the patient was unable to swallow safely. Due to these constellation of findings Palliative team met with the patient and her family and the decision was made to transition her to hospice care after discharge. Job ID: [id number] [facility]
--- NOTE | 2020-02-06 09:16 | PQF ---
CLINICAL DOCUMENTATION CLARIFICATION FORM: Dear : Salbador Christensen Date / Time: 02/06/2020 09:14 Please exercise your independent, professional judgment in responding to the clarification form. Clinical indicators are provided on the bottom of this form for your review Can you please further clarify the nutritional status of the patient? Please check appropriate box(es): [ >] Protein Calorie Malnutrition: [ ] Mild [ > ] Moderate [ ] Severe [ ] Other Malnutrition (please specify) [ ] Underweight without malnutrition [ ] Cachexia [ ] Other diagnosis [ ] Unable to determine Physician Signature: Date/Time: For continuity of documentation, please document condition throughout progress notes and discharge summary. Thank You. To be completed by CDI/Coding staff for physician review: Present Clinical Indicators - Signs / Symptoms / Labs Results and Location in Medical Record [X] suggestive of severe malnutrition in the context of chronic illness Consult RD 02/02 [X] BMI [address] 02/02 [X] Albumin: 01/29=1.8 [id number] [X] Total Protein: 01/29=6.8 [id number]/19 Two or More of the Following ASPEN Criteria: [X] 12% weight loss in 1.[address] 02/02 [X] severe muscle wasting and fat loss Consult RD 02/02 Present Risk Factors Results and Location in Medical Record [X] 74 years old female HP 01/29 [X] Dementia HP 01/29 [X] GERD HP 01/29 [X] History of breast cancer HP 01/29 [X] Smoker HP 01/29 [X] Sepsis HP 01/29 [X] CKD HP 01/29 Present Treatments Results and Location in Medical Record [X] Dietitian Consult Consult RD 02/02 [X] Recommend a liberalized Regular diet Consult RD 02/02 [X] Monitor weight change Consult RD 02/02 [X] Monitor total protein intake Consult RD 02/02 CDS/Watch Manufacturing Supervisor Signature:Lindsey Beltre Phone #: ext [phone] Date/Time: 02/06/20 09:14 Moderate Malnutrition (in acute illness) ? Energy Intake: <75% of estimated energy requirement for > 7 days ? Weight Loss: 1-2%/1 week; 5%/ 1 month; 7.5%/3 months ? Other: mild body fat loss; mild muscle mass loss; mild fluid accumulation; Severe Malnutrition (in acute illness) ? Energy Intake: ? 50% of estimated energy requirement for ? 5 days ? Weight Loss: >2%/1 week; >5%/1 month; >7.5%/3 months ? Other: moderate body fat loss; moderate muscle mass loss; moderate- severe fluid accumulation; measurably reduced sales representative [employer] strength Moderate Malnutrition (in chronic illness) ? Energy Intake: <75% of estimated energy requirement for ?1 month ? Weight Loss: 5%/1 month; 7.5%/3 months; 10%/6 months; 20%/1 year ? Other: mild body fat loss; mild muscle mass loss; mild fluid accumulation Severe Malnutrition (in chronic illness) ? Energy Intake: ?75% of estimated energy requirement for ?1 month ? Weight Loss: >5%/1 month; >7.5%/3 months; >10%/6 months; >20%/1 year ? Other: severe body fat loss; severe muscle mass loss; severe fluid accumulation; measurably reduced sales representative public [employer] strength This is a permanent part of the Medical Record MTDD
== END 2020-02-03 17:20 | disposition hospice, inpatient (51) | DRG 871 ==
LOC: ERS 13:32 → ERHOLD 16:28 → 2NO 19:32
PROVIDERS: ADMIT Family Medicine; ATTEND Family Medicine
DX: A41.9 Sepsis, unspecified organism (principal); G93.41 Metabolic encephalopathy; F02.81 Dementia in other diseases classified elsewhere, unspecified severity, with behavioral disturbance; M86.8X2 Other osteomyelitis, upper arm; M86.8X8 Other osteomyelitis, other site; N30.00 Acute cystitis without hematuria; E87.0 Hyperosmolality and hypernatremia; E44.0 Moderate protein-calorie malnutrition; Z23 Encounter for immunization; G20 Parkinson's disease; N18.9 Chronic kidney disease, unspecified; D63.1 Anemia in chronic kidney disease; K21.9 Gastro-esophageal reflux disease without esophagitis; E03.9 Hypothyroidism, unspecified; I12.9 Hypertensive chronic kidney disease with stage 1 through stage 4 chronic kidney disease, or unspecified chronic kidney disease; F25.0 Schizoaffective disorder, bipolar type; F41.9 Anxiety disorder, unspecified; F17.210 Nicotine dependence, cigarettes, uncomplicated; E88.09 Other disorders of plasma-protein metabolism, not elsewhere classified; B96.89 Other specified bacterial agents as the cause of diseases classified elsewhere; Z66 Do not resuscitate; E87.5 Hyperkalemia; Z20.828 Contact with and (suspected) exposure to other viral communicable diseases; Z86.718 Personal history of other venous thrombosis and embolism; Z85.3 Personal history of malignant neoplasm of breast; Z79.82 Long term (current) use of aspirin; Z79.899 Other long term (current) drug therapy; Z90.11 Acquired absence of right breast and nipple; Z98.51 Tubal ligation status; Z68.25 Body mass index [BMI] 25.0-25.9, adult
CPT/HCPCS: 36415; 70450; 71045; 80048; 80053; 80202; 81003; 81015; 83605; 85025; 87040; 87077; 87086; 87186; 87635; 90471; 90662; 90732; 93005; 94760; 96365; 96367; C9113; G0008; G0009; J0696; J1630; J1650; J2185; J2270; J3370; J3480; J3490; P9047; U0003